=== PATIENT | male | born 1975 | race Caucasian/White ===

== ENCOUNTER 2019-04-17 09:19 | Emergency (ER) | payer SELFPAY ==
[~2019-04-17] VITALS: Ht 170.2 cm; Wt 77.1 kg
[2019-04-17] MEDS ORDERED: SODIUM CHLORIDE 0.9% 500ML 500 ML IV ONE (09:45)
[2019-04-17] MEDS ORDERED: DIPHENHYDRAMINE HCL INJ 50 MG/ML VIAL IV ONE (10:00)
[2019-04-17] MEDS ORDERED: KETOROLAC TROMETHAMINE 30 MG/ML VIAL IV NR (10:00)
[2019-04-17] MEDS ORDERED: METOCLOPRAMIDE HCL 10 MG/2ML VIAL IV ONE (10:00)
[2019-04-17 10:14] LABS: AMPHETAMINES SCREEN,URINE NEGATIVE (NEGATIVE); BENZODIAZEPINES SCREEN,URINE NEGATIVE (NEGATIVE); PHENCYCLIDINE SCREEN,URINE NEGATIVE (NEGATIVE)
[2019-04-17 10:26] VITALS: BP 146/74
== END 2019-04-17 10:46 | disposition home or self-care (01) ==
LOC: ER 09:19
DX: G43.019 Migraine without aura, intractable, without status migrainosus (principal); I10 Essential (primary) hypertension; E78.5 Hyperlipidemia, unspecified; K21.9 Gastro-esophageal reflux disease without esophagitis
CPT/HCPCS: 80307; 99283; J1200; J1885; J2765; J7040

== ENCOUNTER 2019-05-03 15:03 | Emergency (ER) | payer OTHER ==
[~2019-05-03] VITALS: Ht 170.2 cm; Wt 77.1 kg
[2019-05-03 15:44] LABS: BASOPHILS # (AUTO) 0.1 (0.0-0.1); BASOPHILS % 0.6 % (0.0-1.0); EOSINOPHILS # (AUTO) 0.4 (0.0-0.4); EOSINOPHILS % 5.1 % (0.0-6.0); HEMATOCRIT 41.4 % (38.2-49.6); HEMOGLOBIN 14.1 g/dL (14.0-18.0); LYMPHOCYTES # (AUTO) 3.3 (1.0-3.2); LYMPHOCYTES % 41.8 % (18.0-39.1); MEAN CORPUSCULAR HEMOGLOBIN 29.5 pg (28-32); MEAN CORPUSCULAR HGB CONC 34.1 g/dL (31-35); MEAN CORPUSCULAR VOLUME 86.6 fL (81-99); MONOCYTES # (AUTO) 0.6 (0.2-0.8); NEUTROPHILS # (AUTO) 3.6 (2.1-6.9); NEUTROPHILS % 45.1 % (38.7-80.0); PLATELET COUNT 292 x10e3/uL (140-360); RED BLOOD COUNT 4.78 x10e6/uL (4.3-5.7); RED CELL DISTRIBUTION WIDTH 13.2 % (11.7-14.4)
[2019-05-03 15:51] LABS: INR 0.88; PROTHROMBIN TIME 12.4 seconds (11.9-14.5)
[2019-05-03 16:01] LABS: ALANINE AMINOTRANSFERASE 39 IU/L (0-55); ALBUMIN 4.3 g/dL (3.5-5.0); ALBUMIN/GLOBULIN RATIO 1.2 (0.8-2.0); ALKALINE PHOSPHATASE 68 IU/L (40-150); ANION GAP 14.7 mmol/L (8-16); BLOOD UREA NITROGEN 12 mg/dL (7-26); BUN/CREATININE RATIO 12 (6-25); CALCIUM 9.6 mg/dL (8.4-10.2); CARBON DIOXIDE 26 mmol/L (22-29); CHLORIDE 101 mmol/L (98-107); CREATINE KINASE 158 IU/L (30-200); CREATININE, SERUM 1.01 mg/dL (0.72-1.25); EST GLOMERULAR FILTRATION RATE > 60 ML/MIN (60-); GLUCOSE 87 mg/dL (74-118); POTASSIUM 3.7 mmol/L (3.5-5.1); SODIUM 138 mmol/L (136-145)
--- NOTE | 2019-05-03 16:10 | Diagnostic Imaging Report ---
EXAMINATION: CHEST 2 VIEWS INDICATION: Chest pain COMPARISON: None FINDINGS: LINES/TUBES:EKG leads overlie the chest. LUNGS:The lungs are well-inflated. There is perihilar fullness and indistinctness of the pulmonary vasculature. No focal consolidation PLEURA:No pleural effusion or pneumothorax. MEDIASTINUM:The cardiac silhouette is mildly enlarged. BONES/SOFT TISSUES:No acute osseous injury. ABDOMEN:No free air under the diaphragm. IMPRESSION: Mild cardiomegaly and mild interstitial pulmonary edema. Signed by: Itz Sorensen MD on 05/03/2019 4:06 PM
[2019-05-03 16:35] VITALS: BP 148/67
== END 2019-05-03 16:50 | disposition home or self-care (01) ==
LOC: ER 15:03
DX: R10.13 Epigastric pain (principal); I10 Essential (primary) hypertension; E78.5 Hyperlipidemia, unspecified; K21.9 Gastro-esophageal reflux disease without esophagitis
CPT/HCPCS: 36415; 71046; 80053; 82550; 82553; 83880; 84484; 85025; 85610; 85730; 93005; 99284

== ENCOUNTER 2019-05-17 12:02 | Emergency (ER) | payer OTHER ==
[~2019-05-17] VITALS: Ht 170.2 cm; Wt 77.1 kg
--- OUTSIDE RECORDS SUMMARY | 2019-05-17 12:04 | XMS REPORT ---
Author Author [facility] Address Unknown Phone Unavailable Care Team Providers Care Second Shift Supervisor Name Role Phone Vianney LIM Unavailable Unavailable Problems This patient has no known problems. Allergies, Adverse Reactions, Alerts This patient has no known allergies or adverse reactions. Medications This patient has no known medications. Results Test Description Test Time Test Comments Text Results Atomic Results Result Comments CHEST 2 VIEWS 2019-05-03 16:05:00 [place] [id number] Patient Name: PEACE MEDRANO MR #: [id number] : 1975 Age/Sex: 44/M Req #: [id number] Adm Physician: Ordered by: HUMA LIM MD Report #: [id number] Location: ER Room/Bed: Procedure: [id number] DX/CHEST 2 VIEWS Exam Date: 05/03/19 Exam Time: 1545 REPORT STATUS: Signed EXAMINATION: CHEST 2 VIEWS INDICATION: Chest pain COMPARISON: None FINDINGS: LINES/TUBES:EKG leads overlie the chest. LUNGS:The lungs are well-inflated. There is perihilar fullness and indistinctness of the pulmonary vasculature. No focal consolidation PLEURA:No pleural effusion or pneumothorax. MEDIASTINUM:The cardiac silhouette is mildly enlarged. BONES/SOFT TISSUES:No acute osseous injury. ABDOMEN:No free air under the diaphragm. IMPRESSION: Mild cardiomegaly and mild interstitial pulmonary edema. Signed by: Micaela Sorensen MD on 05/03/2019 4:06 PM Dictated By: MICAELA SORENSEN MD [id number] Transcribed By: BALJEET on 05/03/19 1609 COPY TO: HUMA LIM MD
[2019-05-17] MEDS ORDERED: SODIUM CHLORIDE 0.9% 1000ML 1,000 ML IV STA ×2 (12:07)
[2019-05-17] MEDS ORDERED: KETOROLAC TROMETHAMINE 30 MG/ML VIAL IV STA (12:07)
[2019-05-17] MEDS ORDERED: MORPHINE SULFATE INJ 4 MG/ML INJ 1ML IV STA (12:07)
[2019-05-17] MEDS ORDERED: ONDANSETRON HCL INJ 2MG/ML 2ML 2 MG/ML VIAL IV STA (12:07)
[2019-05-17 12:50] LABS: BILIRUBIN,URINE NEGATIVE (NEGATIVE); CLARITY,URINE CLEAR (CLEAR); COLOR,URINE YELLOW (YELLOW); KETONES,URINE NEGATIVE (NEGATIVE); LEUKOCYTE ESTERASE ,URINE NEGATIVE (NEGATIVE); NITRITE,URINE NEGATIVE (NEGATIVE); PROTEIN,URINE DIPSTICK NEGATIVE (NEGATIVE); URINE UROBILINOGEN 0.2 mg/dL (0.2 - 1)
[2019-05-17 12:56] LABS: BACTERIA,URINE FEW /HPF; EPITHELIAL CELLS,URINE FEW /LPF; MUCUS,URINE RARE (RARE); RBC,URINE 0-5 /HPF (0-5); WBC,URINE (MAN) 0-5 /HPF (0-5)
[2019-05-17 13:09] LABS: BASOPHILS % 0.5 % (0.0-1.0); EOSINOPHILS # (AUTO) 0.6 (0.0-0.4); EOSINOPHILS % 7.4 % (0.0-6.0); HEMATOCRIT 42.6 % (38.2-49.6); HEMOGLOBIN 14.6 g/dL (14.0-18.0); LYMPHOCYTES # (AUTO) 2.4 (1.0-3.2); LYMPHOCYTES % 30.8 % (18.0-39.1); MEAN CORPUSCULAR HEMOGLOBIN 29.8 pg (28-32); MEAN CORPUSCULAR HGB CONC 34.3 g/dL (31-35); MEAN CORPUSCULAR VOLUME 86.9 fL (81-99); MONOCYTES # (AUTO) 0.7 (0.2-0.8); MONOCYTES % 8.6 % (4.4-11.3); NEUTROPHILS % 52.3 % (38.7-80.0); PLATELET COUNT 263 x10e3/uL (140-360); RED CELL DISTRIBUTION WIDTH 13.4 % (11.7-14.4)
[2019-05-17 13:19] LABS: ALANINE AMINOTRANSFERASE 59 IU/L (0-55); ALBUMIN 4.1 g/dL (3.5-5.0); ALBUMIN/GLOBULIN RATIO 1.1 (0.8-2.0); ALKALINE PHOSPHATASE 78 IU/L (40-150); ANION GAP 13.9 mmol/L (8-16); BLOOD UREA NITROGEN 13 mg/dL (7-26); BUN/CREATININE RATIO 12 (6-25); CALCIUM 9.4 mg/dL (8.4-10.2); CARBON DIOXIDE 22 mmol/L (22-29); CHLORIDE 104 mmol/L (98-107); CREATININE, SERUM 1.07 mg/dL (0.72-1.25); EST GLOMERULAR FILTRATION RATE > 60 ML/MIN (60-); GLUCOSE 119 mg/dL (74-118); LIPASE 74 U/L (8-78); POTASSIUM 3.9 mmol/L (3.5-5.1); SODIUM 136 mmol/L (136-145)
--- NOTE | 2019-05-17 13:57 | Diagnostic Imaging Report ---
CT of the abdomen and pelvis History: Right flank pain Comparison: None available. Technique: Multidetector CT scanning of the abdomen and pelvis was performed from the level of the lung bases to the inferior pubic ramus, without contrast. DOSE REDUCTION: The examination was performed according to departmental dose-optimization program which includes automated exposure control, adjustment of the mA and/or kV according to patient size and/or use of iterative reconstruction technique. Discussion: The lung bases are clear. Lack of IV contrast limits evaluation of solid and hollow visceral organs. No focal hepatic lesions are identified. The gallbladder is present nondistended. No radiopaque gallstones are identified. There is no intrahepatic or extrahepatic ductal dilatation. The spleen is within normal limits. The bilateral adrenal glands are unremarkable. The pancreas is homogeneous in attenuation. There is no pancreatic ductal dilatation. No peripancreatic inflammatory stranding is present. The kidneys are normal in size. No kidney stones are identified bilaterally. There is no hydroureteronephrosis bilaterally. The stomach, small, and large bowel are nondistended. There is no evidence of obstruction. No bowel wall thickening is appreciated. The appendix is normal in caliber. There is no free intraperitoneal air or ascites. The abdominal aorta is of normal course and caliber. The urinary bladder is within normal limits. No acute osseous abnormalities. IMPRESSION: No CT evidence of acute abdominal or pelvic pathology. Specifically, there is no evidence of nephroureterolithiasis. Signed by: Temo Chapin MD on 05/17/2019 1:54 PM
== END 2019-05-17 14:09 | disposition home or self-care (01) ==
LOC: ER 12:02
DX: M54.5 Low back pain (principal); R10.32 Left lower quadrant pain; R11.0 Nausea; I10 Essential (primary) hypertension
CPT/HCPCS: 36415; 74176; 80053; 81001; 83690; 85025; 87086; 99284; J1885; J2270; J2405; J7030

== ENCOUNTER 2020-01-18 20:36 | Inpatient (IN) | payer OTHER, SELFPAY ==
[~2020-01-18] VITALS: Ht 170.2 cm; Wt 75.3 kg
[2020-01-18] MEDS: SODIUM CHLORIDE 0.9% 1000ML 1,000 ML IV SCH (02:05)
--- NOTE | 2020-01-18 20:58 | Emergency Department Note ---
History of Present Illnes History of Present Illness Chief Complaint: Chest Pain History of Present Illness This is a 44 year old male left sided chest wall pain radiates to the back. Pain with inspiration. Recent COVID-19 infection last month but has since resolved with two neg COVID-19 tests per patient Arrival Mode: Car Onset (how long ago): day(s) (4) Radiation: Reports back Severity: moderate Onset quality: gradual Duration (how long): day(s) (3) Timing of current episode: constant Progression: worsening Chronicity: new Context: Denies recent illness, Denies recent surgery, Denies recent immobilization, Denies recent travel, Denies trauma/injury, Denies new medications, Denies hx of DVT/PE, Denies non-compliance w/ medications, Denies other Relieving factors: rest Exacerbating factors: other (breathing) Associated symptoms: Reports chest pain, Reports shortness of breath Treatments prior to arrival: none Previous service: other (recent PCP ) Past Medical/Family History Physician Review I have reviewed the patient's past medical and family history. Any updates have been documented here. Past Medical History Recent Fever: No Clinical Suspicion of Infectio: No New/Unexplained Change in Ment: No Past Medical History: Hypertension, Hyperlipedemia Other Medical History: GERD CERVICAL DISK INJURY Other Surgery: TESTICULAR SX Social History Smoking Cessation: Never Smoker Alcohol Use: Occasional Any Illegal Drug Use: No Other Last Tetanus: UTD Review of Systems Review of Systems Constitutional: Denies fever, Denies malaise, Denies weakness EENTM: Reports no symptoms Cardiovascular: Reports chest pain Respiratory: Reports pain on inspiration Gastrointestinal: Reports no symptoms Genitourinary: Reports no symptoms Musculoskeletal: Reports no symptoms Integumentary: Reports no symptoms Neurological: Reports no symptoms Psychological: Reports no symptoms Endocrine: Reports no symptoms Hematological/Lymphatic: Reports no symptoms Physical Exam Related Data Allergies: Coded Allergies: No Known Allergies (Unverified , 05/03/19) Vital signs reviewed: Yes Physical Exam CONSTITUTIONAL Constitutional: Present well-developed, Present well-nourished HENT HENT: Present normocephalic, Present atraumatic, Present oropharynx clear/moist, Present nose normal HENT L/R: Present left ext ear normal, Present right ext ear normal EYES Eyes: Reports PERRL, Reports conjunctivae normal NECK Neck: Present ROM normal PULMONARY Pulmonary: Present effort normal, Present breath sounds normal CARDIOVASCULAR Cardiovascular: Present regular rhythm, Present heart sounds normal, Present capillary refill normal, Present normal rate GASTROINTESTINAL Abdominal: Present soft, Present nontender, Present bowel sounds normal GENITOURINARY Genitourinary: Present exam deferred SKIN Skin: Present warm, Present dry MUSCULOSKELETAL Musculoskeletal: Present ROM normal NEUROLOGICAL Neurological: Present alert, Present oriented x 3, Present no gross motor or sensory deficits PSYCHOLOGICAL Psychological: Present mood/affect normal, Present judgement normal Results Laboratory Lab results reviewed: Yes Laboratory comments Laboratory Tests Test 01/18/20 23:00 01/18/20 21:00 Lactic Acid Level 0.9 mmol/L (0.5-2.0) White Blood Count 20.43 x10e3/uL (4.8-10.8) Red Blood Count 4.39 x10e6/uL (4.3-5.7) Hemoglobin 12.7 g/dL (14.0-18.0) Hematocrit 37.4 % (38.2-49.6) Mean Corpuscular Volume 85.2 fL (81-99) Mean Corpuscular Hemoglobin 28.9 pg (28-32) Mean Corpuscular Hemoglobin Concent 34.0 g/dL (31-35) Red Cell Distribution Width 15.2 % (11.7-14.4) Platelet Count 417 x10e3/uL (140-360) Neutrophils (%) (Auto) 81.6 % (38.7-80.0) Lymphocytes (%) (Auto) 8.7 % (18.0-39.1) Monocytes (%) (Auto) 8.0 % (4.4-11.3) Eosinophils (%) (Auto) 0.6 % (0.0-6.0) Basophils (%) (Auto) 0.3 % (0.0-1.0) Neutrophils # (Auto) 16.7 (2.1-6.9) Lymphocytes # (Auto) 1.8 (1.0-3.2) Monocytes # (Auto) 1.6 (0.2-0.8) Eosinophils # (Auto) 0.1 (0.0-0.4) Basophils # (Auto) 0.1 (0.0-0.1) Absolute Immature Granulocyte (auto 0.17 x10e3/uL (0-0.1) Sodium Level 135 mmol/L (136-145) Potassium Level 3.7 mmol/L (3.5-5.1) Chloride Level 96 mmol/L (98-107) Carbon Dioxide Level 25 mmol/L (22-29) Anion Gap 17.7 mmol/L (8-16) Blood Urea Nitrogen 16 mg/dL (7-26) Creatinine 1.38 mg/dL (0.72-1.25) Estimat Glomerular Filtration Rate 56 ML/MIN (60-) BUN/Creatinine Ratio 12 (6-25) Glucose Level 138 mg/dL (74-118) Calcium Level 9.2 mg/dL (8.4-10.2) Total Bilirubin 2.8 mg/dL (0.2-1.2) Aspartate Amino Transf (AST/SGOT) 307 IU/L (5-34) Alanine Aminotransferase (ALT/SGPT) 442 IU/L (0-55) Alkaline Phosphatase 273 IU/L (40-150) Creatine Kinase 53 IU/L (30-200) Creatine Kinase MB 0.20 ng/mL (0-5.0) Troponin I < 0.001 ng/mL (0-0.300) B-Type Natriuretic Peptide < 10.0 pg/mL (0-100) Total Protein 7.8 g/dL (6.5-8.1) Albumin 2.7 g/dL (3.5-5.0) Globulin 5.1 g/dL (2.3-3.5) Albumin/Globulin Ratio 0.5 (0.8-2.0) Lipase 69 U/L (8-78) Imaging Imaging results reviewed: Yes Impressions [place] [id number] Patient Name: PEACE MEDRANO MR #: [id number] : 1975 Age/Sex: 44/M Req #: [id number] Adm Physician: Ordered by: STEPHANIE WILKES DO Report #: [id number] Location: ER Room/Bed: Procedure: [id number] CT/CTA CHEST Exam Date: 01/18/20 Exam Time: 2229 REPORT STATUS: Signed EXAM: CTA of the Thoracic Aorta WITH Contrast. CTA of the abdominopelvic aorta INDICATION: Left chest pain ^PE PROTOCOL ^[id number] ^2229 ^Y COMPARISON: None. TECHNIQUE: Multi-detector CT technology was employed. CTA of the chest, abdomen, and pelvis was performed after the administration of IV contrast. For optimization of anatomic evaluation, multiplanar reconstruction, maximum intensity projections, and advanced 3-D off-line postprocessing were performed on a dedicated stand-alone workstation under the direct supervision of the interpreting physician. IV CONTRAST: 100 mL of Isovue 370 ORAL CONTRAST: None COMPLICATIONS: None RADIATION DOSE: Total DLP: 1149.35 mGy-cm Estimated effective dose: (DLP x 0.015 x size factor) mSv CTDIvol has been reviewed. It is below the limits set by the Radiation Protocol Committee (RPC). For optimization of anatomic evaluation, multiplanar reconstruction, maximum intensity projections, and advanced 3-D off-line postprocessing were performed on a dedicated stand-alone workstation under the direct supervision of the interpreting physician. FINDINGS: CHEST: There is an acute fracture through the anterior first rib. There there is a subadjacent 3.7 x 2.8 x 1.9 cm heterogenous collection with internal foci of gas. There appears to be compressed lung on the outer aspect of the lesion. The left internal mammary artery courses along the medial aspect of the collection. The collection abuts the anterior mediastinum. There are reactive inflammatory changes in the anterior mediastinum. There is loculated simple appearing fluid in the left major fissure and at the left base without pleural thickening or enhancement. There is consolidation in the left lower lobe with air bronchograms. There is scattered atelectasis in the right lung. The heart is not enlarged. The thoracic aorta is normal caliber. No evidence of intramural hematoma or dissection. No filling defects within the pulmonary arteries. LIMITED ABDOMEN: HEPATOBILIARY: No focal hepatic lesions. No biliary ductal dilation. GALLBLADDER: No radio-opaque stones or sludge. No wall thickening. SPLEEN: No splenomegaly. PANCREAS: No focal masses or ductal dilatation. ADRENALS: No adrenal nodules KIDNEYS/URETERS: Kidneys enhance symmetrically. No hydronephrosis. No cystic or solid mass lesions. No stones. GI TRACT: No abnormal distention, wall thickening, or evidence of bowel obstruction. Appendix is normal. PELVIC ORGANS/BLADDER: Unremarkable. LYMPH NODES: No lymphadenopathy. VESSELS: The abdominal aorta is normal caliber. PERITONEUM / RETROPERITONEUM: No free air or fluid. BONES: Unremarkable. SOFT TISSUES: Unremarkable. IMPRESSION: 1. 3.7 cm collection with internal foci of gas in the upper left hemithorax abutting a nondisplaced first rib fracture. The collection is favored to lay within the pleural space and representing a loculated empyema. Pulmonary abscess is considered less likely, but possible. The left internal mammary artery courses along the medial aspect of the lesion. Consider interventional radiology consultation. Follow-up CT with contrast in 6 weeks is recommended to exclude an underlying mass lesion. 2. Findings concerning for left lower lobe pneumonia, but atelectasis is also considered. Small simple appearing dependent left pleural effusion with fluid tracking in the left major fissure 3. Normal aorta. There is no acute aortic pathology. 4. No acute abdominopelvic process. 5. No filling defects within the pulmonary arteries. Critical results were discussed with Dr. Wilkes on 01/18/2020 and 11:15 PM Signed by: Halle Noble MD on 01/18/2020 11:27 PM Dictated By: HALLE NOBLE MD Transcribed By: BALJEET on 01/18/20 [id number] COPY TO: STEPHANIE WILKES DO~ Procedures 12 Lead ECG Interpretation ECG Interpretation : ECG: ECG 1 [employer]: Interpreted by ED physician Date: Jan 18, 2020 Time: 21:02 Prior ECG tracings: reviewed Rhythm: sinus rhythm Rate: normal BPM: 84 QRS axis: normal ST segments normal: Yes T waves normal: Yes Clinical Impression: normal ECG Assessment & Plan Medical Decision Making MDM 44 yom presents with chest pain. CMP, CBC, EKG, CT chest aand cardiac enzymes ordered for consideration of ACS, PE, costocondritis, Chest wall pain, and pneumothorax considered. labs, imaging and EKG reviewed . Assessment & Plan Final Impression: (1) Empyema lung (2) Rib fracture (3) Transaminitis Depart Disposition: ADMITTED Home Meds No Active Prescriptions or Reported Meds STEPHANIE WILKES DO Jan 18, 2020 20:58
[2020-01-18] MEDS ORDERED: KETOROLAC TROMETHAMINE 30 MG/ML VIAL IV NR (21:00)
[2020-01-18] MEDS ORDERED: ONDANSETRON HCL INJ 2MG/ML 2ML 2 MG/ML VIAL IV NR (21:00)
[2020-01-18 21:12] LABS: BASOPHILS # (AUTO) 0.1 (0.0-0.1); BASOPHILS % 0.3 % (0.0-1.0); EOSINOPHILS # (AUTO) 0.1 (0.0-0.4); EOSINOPHILS % 0.6 % (0.0-6.0); HEMATOCRIT 37.4 % (38.2-49.6); HEMOGLOBIN 12.7 g/dL (14.0-18.0); LYMPHOCYTES # (AUTO) 1.8 (1.0-3.2); LYMPHOCYTES % 8.7 % (18.0-39.1); MEAN CORPUSCULAR HEMOGLOBIN 28.9 pg (28-32); MEAN CORPUSCULAR VOLUME 85.2 fL (81-99); MONOCYTES # (AUTO) 1.6 (0.2-0.8); NEUTROPHILS # (AUTO) 16.7 (2.1-6.9); NEUTROPHILS % 81.6 % (38.7-80.0); PLATELET COUNT 417 x10e3/uL (140-360); RED BLOOD COUNT 4.39 x10e6/uL (4.3-5.7); RED CELL DISTRIBUTION WIDTH 15.2 % (11.7-14.4)
[2020-01-18] MEDS ORDERED: MORPHINE SULFATE INJ 4 MG/ML INJ 1ML IV NR (21:15)
[2020-01-18 21:31] LABS: ALANINE AMINOTRANSFERASE 442 IU/L (0-55); ALBUMIN 2.7 g/dL (3.5-5.0); ALBUMIN/GLOBULIN RATIO 0.5 (0.8-2.0); ALKALINE PHOSPHATASE 273 IU/L (40-150); ANION GAP 17.7 mmol/L (8-16); BLOOD UREA NITROGEN 16 mg/dL (7-26); BUN/CREATININE RATIO 12 (6-25); CALCIUM 9.2 mg/dL (8.4-10.2); CARBON DIOXIDE 25 mmol/L (22-29); CHLORIDE 96 mmol/L (98-107); CREATINE KINASE 53 IU/L (30-200); CREATININE, SERUM 1.38 mg/dL (0.72-1.25); EST GLOMERULAR FILTRATION RATE 56 ML/MIN (60-); GLUCOSE 138 mg/dL (74-118); POTASSIUM 3.7 mmol/L (3.5-5.1); SODIUM 135 mmol/L (136-145)
[2020-01-18] MEDS ORDERED: SODIUM CHLORIDE 0.9% 1000ML 1,000 ML IV STA (21:53)
--- OUTSIDE RECORDS SUMMARY | 2020-01-18 22:02 | XMS REPORT | Continuity of Care Document ---
Author Author [facility] Organization [facility] Address [address] [place] [address] Phone Unavailable Care Team Providers [employer] Counselor Name Role Phone JANNIE VERGARA DO PCP BUSTER LOPEZ Attphys Unavailable Vianney LIM Attphyaysha Unavailable Payers Payer Name Policy Type Policy Number Effective Date Expiration Date Aysha Zepeda [id number] [facility] Problems Condition Name Condition Details Condition Category Status Onset Date Resolution Date Last Treatment Date Treating Clinician Comments Source Bronchitis Bronchitis Problem Active C [facility] Allergies, Adverse Reactions, Alerts This patient has no known allergies or adverse reactions. Medications This patient has no known medications. Procedures Procedure Date / Time Performed Performing Clinician Sour e CT of abdomen and pelvis without contrast 2019-05-17 00:00:00 BUSTER PACHECO [facility] X-ray of chest, two views 2019-05-03 00:00:00 HUMA LIM [facility] EMERGENCY DEPT VISIT 2019-05-03 00:00:00 [facility] Encounters Start Date/Time End Date/Time Encounter Type Admission Type Attendi [facility] Care Department Encounter ID Source 2019-11-30 21:30:00 2019-11-30 21:30:00 Emergency E [id number] 2019-05-17 12:02:00 2019-05-17 14:09:00 Departed Emergency Room [address] [facility] [id number] [facility] 2019-05-03 15:03:00 2019-05-03 16:50:00 Departed Emergency Room [address] [facility] [id number] [facility] 2019-04-17 09:19:00 2019-04-17 10:46:[address] [facility] [id number] [facility] Results Test Description Test Time Test Comments Results Result Comments Source CT ABDOMEN/PELVIS WO 2019-05-17 13:50:00 [facility] [address] [address] Patient Name: TEMO MEDRANO MR #: [id number] : 1975 Age/Sex: 44/M Req #: [id number] Adm Physician: Ordered by: BUSTER LOPEZ MD, MD Report #: [id number] Location: ER Room/Bed: Procedure: [id number] CT/CT ABDOMEN/PELVIS WO Exam Date: 05/17/19 Exam Time: 1330 REPORT STATUS: Signed CT of the abdomen and pelvis Histo ry: Right flank pain Comparison: None available. Technique: Multidetector CT scanning of the abdomen and pelvis was performed from the level of the lung bases to the inferior pubic ramus, without contrast. DOSE REDUCTION: The examination was performed according to departmental dose-optimization program which includes automated exposure control, adjustment of the mA and/or kV according to patient size and/or use of iterative reconstruction technique. Discussion: The lung bases are clear. Lack of IV contrast limits evaluation of solid and hollow visceral organs. No focal hepatic lesions are identified. The gallbladder is present nondistended. No radiopaque gallstones are identified. There is no intrahepatic or extrahepatic ductal dilatation. The spleen is within normal limits. The bilateral adrenal glands are unremarkable. The pancreas is homogeneous in attenuation. There is no pancreatic ductal dilatation. No peripancreatic inflammatory stranding is present. The kidneys are normal in size. No kidney stones are identified bilaterally. There is no hydroureteronephrosis bilaterally. The stomach, small, and large bowel are nondistended. There is no evidence of obstruction. No bowel wall thickening is appreciated. The appendix is normal in caliber. There is no free intraperitoneal air or ascites. The abdominal aorta is of normal course and caliber. The urinary bladder is within normal limits. No acute osseous abnormalities. IMPRESSION: No CT evidence of acute abdominal or pelvic pathology. Specifically, there is no evidence of nephroureterolithiasis. Signed by: Temo Winter MD on 05/17/2019 1:54 PM Dictated By: TEMO WINTER MD 1354 Transcribed By: BALJEET on 05/17/19 1354 COPY TO: BUSTER LOPEZ Sodium Level 2019-05-17 13:20:00 Test Item Sodium Level (test code = 2951-2) 136 136-145 [facility] Kfefh3027-46-87 13:20:00* Test Item Value Reference Range Interpretation Comments Potassium Level (test code = 2823-3) 3.9 3.5-5.1 [facility]Chloride Lwquj1811-50-08 13:20:00* Test Item Value Reference Range Interpretation Comments Chloride Level (test code = 2075-0) 104 98-107 [facility]Carbon Dioxide Urzfy8374-12-70 13:20:00* Test Item Value Reference Range Interpretation Comments Carbon Dioxide Level (test code = 2028-9) 22 22-29 [facility]Anion Spg2946-63-24 13:20:00* Test Item Value Reference Range Interpretation Comments Anion Gap (test code = 68032-3) 13.9 8-16 [facility]Blood Urea Yinijmpg9708-18-15 13:20:00* Test Item Value Reference Range Interpretation Comments Blood Urea Nitrogen (test code = 3094-0) 13 7-26 [facility]Creatinine2019-12-02 13:20:00* Test Item Value Reference Range Interpretation Comments Creatinine (test code = 2160-0) 1.07 0.72-1.25 [facility]BUN/Creatinine Rqbhc9891-72-67 13:20:00* Test Item Value Reference Range Interpretation Comments BUN/Creatinine Ratio (test code = 3097-3) 12 6-25 [facility] HospitalEstimat Glomerular Filtration Rate 2019-05-17 13:20:00* Test Item Value Reference Range Interpretation Comments Estimat Glomerular Filtration Rate (test code = 978286618) > 60 >60 Ranges were taken from the National Kidney Disease Education Program and the [facility] Kidney Foundation literature.Reference ranges:60 or greater: Spyofa24-54 ( for 3 consecutive months): Chronic kidney disease 15 or less: Kidney failure[facility] HospitalGlucose Qffwq8121-43-89 13:20:00* Test Item Value Reference Range Interpretation Comments Glucose Level (test code = IIV3451) 119 74-118 H [facility] HospitalCalcium Viylm0279-93-34 13:20:00* Test Item Value Reference Range Interpretation Comments Calcium Level (test code = 58797-7) 9.4 8.4-10.2 [facility] HospitalTotal Afsznbvtz9911-65-51 13:20:00* Test Item Value Reference Range Interpretation Comments Total Bilirubin (test code = 1975-2) 0.3 0.2-1.2 [facility] HospitalAspartate Amino Transf (AST/SGOT) 2019-05-17 13:20:00* Test Item Value Reference Range Interpretation Comments Aspartate Amino Transf (AST/SGOT) (test code = Aspartate Amino Transf (AST/SGOT)) 34 5-34 [facility] HospitalAlanine Aminotransferase (ALT/SGPT) 2019-05-17 13:20:00* Test Item Value Reference Range Interpretation Comments Alanine Aminotransferase (ALT/SGPT) (test code = 1742-6) 59 0-55 H [facility] HospitalTotal Plqyavg2356-76-33 13:20:00* Test Item Value Reference Range Interpretation Comments Total Protein (test code = 2885-2) 7.7 6.5-8.1 [facility] HospitalAlbumin2019-12-02 13:20:00* Test Item Value Reference Range Interpretation Comments Albumin (test code = 1751-7) 4.1 3.5-5.0 [facility] HospitalGlobulin2019-12-02 13:20:00* Test Item Value Reference Range Interpretation Comments Globulin (test code = 27702-7) 3.6 2.3-3.5 H [facility] HospitalAlbumin/Globulin Wuvqc0901-64-39 13:20:00 * Test Item Value Reference Range Interpretation Comments Albumin/Globulin Ratio (test code = 1759-0) 1.1 0.8-2.0 [facility] HospitalAlkaline Dwsmitjpyac1262-73-76 13:20:00* Test Item Value Reference Range Interpretation Comments Alkaline Phosphatase (test code = 6768-6) 78 40-150 [facility] HospitalLipase2019-12-02 13:20:00* Test Item Value Reference Range Interpretation Comments Lipase (test code = 3040-3) 74 8-78 [facility] HospitalWhite Blood Jspsd2653-72-91 13:10:00* Test Item Value Reference Range Interpretation Comments White Blood Count (test code = 6690-2) 7.67 4.8-10.8 [facility]Red Blood Wmimc7050-15-87 13:10:00* Test Item Value Reference Range Interpretation Comments Red Blood Count (test code = 789-8) 4.90 4.3-5.7 [facility] HospitalHemoglobin2019-12-02 13:10:00* Test Item Value Reference Range Interpretation Comments Hemoglobin (test code = 02074-3) 14.6 14.0-18.0 [facility] HospitalHematocrit2019-12-02 13:10:00* Test Item Value Reference Range Interpretation Comments Hematocrit (test code = 4544-3) 42.6 38.2-49.6 [facility] HospitalMean Corpuscular Klwnja6811-58-29 13:10:00* Test Item Value Reference Range Interpretation Comments Mean Corpuscular Volume (test code = 787-2) 86.9 81-99 [facility] HospitalMean Corpuscular Uivpmpbmbf1671-75-04 13:10:00* Test Item Value Reference Range Interpretation Comments Mean Corpuscular Hemoglobin (test code = 785-6) 29.8 28-32 [facility] HospitalMean Corpuscular Hemoglobin Concent 2019-05-17 13:10:00* Test Item Value Reference Range Interpretation Comments Mean Corpuscular Hemoglobin Concent (test code = 786-4) 34.3 31-35 [facility] HospitalRed Cell Distribution Bgbkl3187-14-29 13:10:00* Test Item Value Reference Range Interpretation Comments Red Cell Distribution Width (test code = 77559-7) 13.4 11.7 -14.4 [facility] HospitalPlatelet Rrgcf8173-34-46 13:10:00* Test Item Value Reference Range Interpretation Comments Platelet Count (test code = 777-3) 263 140-360 [facility] HospitalNeutrophils (%) (Auto)2019-05-17 13:10:00 * Test Item Value Reference Range Interpretation Comments Neutrophils (%) (Auto) (test code = 10067-5) 52.3 38.7-80.0 [facility] HospitalLymphocytes (%) (Auto)2019-05-17 13:10:00 * Test Item Value Reference Range Interpretation Comments Lymphocytes (%) (Auto) (test code = 736-9) 30.8 18.0-39.1 [facility] HospitalMonocytes (%) (Auto)2019-05-17 13:10:00* Test Item Value Reference Range Interpretation Comments Monocytes (%) (Auto) (test code = 5905-5) 8.6 4.4-11.3 [facility] HospitalEosinophils (%) (Auto)2019-05-17 13:10:00 * Test Item Value Reference Range Interpretation Comments Eosinophils (%) (Auto) (test code = 713-8) 7.4 0.0-6.0 H [facility] HospitalBasophils (%) (Auto)2019-05-17 13:10:00* Test Item Value Reference Range Interpretation Comments Basophils (%) (Auto) (test code = 706-2) 0.5 0.0-1.0 [facility] HospitalIM GRANULOCYTES %2019-05-17 13:10:00* Test Item Value Reference Range Interpretation Comments IM GRANULOCYTES % (test code = IM GRANULOCYTES %) 0.4 0.0- 1.0 [facility] HospitalNeutrophils # (Auto)2019-05-17 13:10:00* Test Item Value Reference Range Interpretation Comments Neutrophils # (Auto) (test code = 751-8) 4.0 2.1-6.9 [facility] HospitalLymphocytes # (Auto)2019-05-17 13:10:00* Test Item Value Reference Range Interpretation Comments Lymphocytes # (Auto) (test code = 70641-5) 2.4 1.0-3.2 [facility] HospitalMonocytes # (Auto)2019-05-17 13:10:00* Test Item Value Reference Range Interpretation Comments Monocytes # (Auto) (test code = 742-7) 0.7 0.2-0.8 [facility]Eosinophils # (Auto)2019-05-17 13:10:00* Test Item Value Reference Range Interpretation Comments Eosinophils # (Auto) (test code = 711-2) 0.6 0.0-0.4 H [facility] HospitalBasophils # (Auto)2019-05-17 13:10:00* Test Item Value Reference Range Interpretation Comments Basophils # (Auto) (test code = 704-7) 0.0 0.0-0.1 [facility] HospitalAbsolute Immature Granulocyte (auto 2019-05-17 13:10:00* Test Item Value Reference Range Interpretation Comments Absolute Immature Granulocyte (auto (jeronimo t code = Absolute Immature Granulocyte (auto) 0.03 0-0.1 [facility] HospitalUrine VPQ5215-95-76 12:57:00* Test Item Value Reference Range Interpretation Comments Urine WBC (test code = 5821-4) 0-5 0-5 [facility] HospitalUrine NXJ2047-38-22 12:57:00* Test Item Value Reference Range Interpretation Comments Urine RBC (test code = 38122-8) 0-5 0-5 [facility] HospitalUrine Eudrjbyu1447-23-59 12:57:00* Test Item Value Reference Range Interpretation Comments Urine Bacteria (test code = 78393-3) FEW NONE [facility] HospitalUrine Epithelial Fzqjm8567-79-60 12:57:00 * Test Item Value Reference Range Interpretation Comments Urine Epithelial Cells (test code = 90770-5) FEW NONE [facility] HospitalUrine Aqtkh2365-64-55 12:57:00* Test Item Value Reference Range Interpretation Comments Urine Mucus (test code = 8247-9) RARE RARE [facility] HospitalUrine Rvddb4634-90-84 12:51:00* Test Item Value Reference Range Interpretation Comments Urine Color (test code = 5778-6) YELLOW YELLOW [facility] HospitalUrine Tdjoylk5419-86-14 12:51:00* Test Item Value Reference Range Interpretation Comments Urine Clarity (test code = 93016-8) CLEAR CLEAR [facility] HospitalUrine Specific Vsayyfm1538-11-39 12:51:00 * Test Item Value Reference Range Interpretation Comments Urine Specific [place] (test code = 5811-5) 1.015 1.010-1.02 5 [facility] HospitalUrine bD8673-14-22 12:51:00* Test Item Value Reference Range Interpretation Comments Urine pH (test code = 92546-3) 7 5-7 [facility] Leukocyte Rcwzbktq3293-87-47 12:51:00* Test Item Value Reference Range Interpretation Comments Urine Leukocyte Esterase (test code = 29002-0) NEGATIVE NEGATIV E [facility] HospitalUrine Xumwaea7729-77-81 12:51:00* Test Item Value Reference Range Interpretation Comments Urine Nitrite (test code = 22985-1) NEGATIVE NEGATIVE [facility] HospitalUrine Mbqxmli9351-16-70 12:51:00* Test Item Value Reference Range Interpretation Comments Urine Protein (test code = 32566-1) NEGATIVE NEGATIVE [facility] HospitalUrine Glucose (UA)2019-05-17 12:51:00* Test Item Value Reference Range Interpretation Comments Urine Glucose (UA) (test code = 50403-9) NEGATIVE NEGATIVE [facility] HospitalUrine Xxjudaz0452-97-97 12:51:00* Test Item Value Reference Range Interpretation Comments Urine Ketones (test code = 58316-0) NEGATIVE NEGATIVE [facility] HospitalU[facility] Poghxgkgibeb3818-52-28 12:51:00* Test Item Value Reference Range Interpretation Comments Urine Urobilinogen (test code = 50538-5) 0.2 0.2-1 [facility] HospitalU[facility] Dtigewirm2941-96-45 12:51:00* Test Item Value Reference Range Interpretation Comments Urine Bilirubin (test code = 1977-8) NEGATIVE NEGATIVE [facility] Scxqj2500-59-58 12:51:00* Test Item Value Reference Range Interpretation Comments Urine Blood (test code = 30498-5) NEGATIVE NEGATIVE [facility] HospitalB-Type Natriuretic Bffqaxt3143-12-48 16:10:00* Test Item Value Reference Range Interpretation Comments B-Type Natriuretic Peptide (test code = 30450-1) < 10.0 0-100 [facility] HospitalB-Type Natriuretic Yvkpcno5351-15-34 16:10:00* Test Item Value Reference Range Interpretation Comments B-Type Natriuretic Peptide (test code = 75502-9) < 10.0 0-100 [facility] HospitalCreatine Kinase SY1944-84-21 16:08:00* Test Item Value Reference Range Interpretation Comments Creatine Kinase MB (test code = 88286-4) 0.70 0-5.0 [facility] HospitalTroponin I0423-91-81 16:08:00* Test Item Value Reference Range Interpretation Comments Troponin I (test code = CAP1936) < 0.001 0-0.300 [facility] HospitalCreatine Kinase FF3139-31-43 16:08:00* Test Item Value Reference Range Interpretation Comments Creatine Kinase MB (test code = 67213-2) 0.70 0-5.0 [facility] HospitalTroponin L1964-35-68 16:08:00* Test Item Value Reference Range Interpretation Comments Troponin I (test code = JOX1980) < 0.001 0-0.[address] [facility]CHEST 2 XGQID7918-47-93 16:05:[address] [address] Patient Name: TEMO MEDRANO MR #: [id number] : 1975 Age/Sex: 44/M Req #: [id number] Adm Physician: Ordered by: HUMA LIM MD Report #: [id number] Location: ER Room/Bed: Procedure: [id number] DX/CHEST 2 VIEWS Exam Date: 05/03/19 Exam Time: 1545 REPORT STATUS: Signed EXAMINATION: CHEST 2 VIEWS INDICATION: Chest pain COMPARISON: N one FINDINGS: LINES/TUBES:EKG leads overlie the chest. LUNGS :The lungs are well-inflated. There is perihilar fullness and indistinctness o f the pulmonary vasculature. No focal consolidation PLEURA:No pleural effu loyd or pneumothorax. MEDIASTINUM:The cardiac silhouette is mildly enlarged . BONES/SOFT TISSUES:No acute osseous injury. ABDOMEN:No free air unde r the diaphragm. IMPRESSION: Mild cardiomegaly and mild interstitial pulmonary edema. Signed by: Micaela Zaragoza MD on 05/03/2019 4:06 PM Dic tated By: MICAELA ZARAGOZA MD 160 6 Transcribed By: BALJEET on 05/03/19 1606 COPY TO: HUMA LIM Sodium Yexri7683-04-24 16:03:00* Test Item Value Reference Range Interpretation Comments Sodium Level (test code = 2951-2) 138 136-145 [facility]Pot[facility] Kjvif3238-57-82 16:03:00* Test Item Value Reference Range Interpretation Comments Potassium Level (test code = 2823-3) 3.7 3.5-5.1 [facility] HospitalChloride Yhleo0320-97-06 16:03:00* Test Item Value Reference Range Interpretation Comments Chloride Level (test code = 2075-0) 101 98-107 [facility] HospitalCarbon Dioxide Tryzh1278-25-39 16:03:00* Test Item Value Reference Range Interpretation Comments Carbon Dioxide Level (test code = 2028-9) 26 22-29 [facility] HospitalAnion Qqn1679-29-06 16:03:00* Test Item Value Reference Range Interpretation Comments Anion Gap (test code = 74980-1) 14.7 8-16 [facility] HospitalBlood Urea Ovfjvadi2473-14-56 16:03:00* Test Item Value Reference Range Interpretation Comments Blood Urea Nitrogen (test code = 3094-0) 12 7-26 [facility] HospitalCreatinine2019-11-18 16:03:00* Test Item Value Reference Range Interpretation Comments Creatinine (test code = 2160-0) 1.01 0.72-1.25 [facility] HospitalBUN/Creatinine Tjmam9513-22-14 16:03:00* Test Item Value Reference Range Interpretation Comments BUN/Creatinine Ratio (test code = 3097-3) 12 6- [facility] HospitalEstimat Glomerular Filtration Rate 2019-05-03 16:03:00* Test Item Value Reference Range Interpretation Comments Estimat Glomerular Filtration Rate (test code = 876689308) > 60 >60 Ranges were taken from the National Kidney Disease Education Program and the [facility] literature.Reference ranges:60 or greater: Hcyzet08-21 ( for 3 consecutive months): Chronic kidney disease 15 or less: Kidney failureHemphill County HospitalGlucose Scqik7104-08-03 16:03:00* Test Item Value Reference Range Interpretation Comments Glucose Level (test code = SPB6049) 87 74-118 [facility] HospitalCalcium Pzdeo1763-33-72 16:03:00* Test Item Value Reference Range Interpretation Comments Calcium Level (test code = 55185-8) 9.6 8.4-10.2 [facility] HospitalTotal Pkuqcfpin4769-18-92 16:03:00* Test Item Value Reference Range Interpretation Comments Total Bilirubin (test code = 1975-2) 0.5 0.2-1.2 [facility] HospitalAspartate Amino Transf (AST/SGOT) 2019-05-03 16:03:00* Test Item Value Reference Range Interpretation Comments Aspartate Amino Transf (AST/SGOT) (test code = Aspartate Amino Transf (AST/SGOT)) 31 5-34 [facility] HospitalAlanine Aminotransferase (ALT/SGPT) 2019-05-03 16:03:00* Test Item Value Reference Range Interpretation Comments Alanine Aminotransferase (ALT/SGPT) (test code = 1742-6) 39 0-55 [facility] HospitalTotal Gmbqkux7451-84-88 16:03:00* Test Item Value Reference Range Interpretation Comments Total Protein (test code = 2885-2) 7.8 6.5-8.1 [facility] HospitalAlbumin2019-11-18 16:03:00* Test Item Value Reference Range Interpretation Comments Albumin (test code = 1751-7) 4.3 3.5-5.0 [facility] HospitalGlobulin2019-11-18 16:03:00* Test Item Value Reference Range Interpretation Comments Globulin (test code = 09547-8) 3.5 2.3-3.5 [facility] HospitalAlbumin/Globulin Glwlz4033-94-72 16:03:00 * Test Item Value Reference Range Interpretation Comments Albumin/Globulin Ratio (test code = 1759-0) 1.2 0.8-2.0 [facility] HospitalAlkaline Suyywchbkun0561-15-14 16:03:00* Test Item Value Reference Range Interpretation Comments Alkaline Phosphatase (test code = 6768-6) 68 40-150 [facility] HospitalCreatine Wtlnwb2649-75-68 16:03:00* Test Item Value Reference Range Interpretation Comments Creatine Kinase (test code = 2157-6) 158 30-200 [facility] HospitalCreatine Dpjicq6656-41-96 16:03:00* Test Item Value Reference Range Interpretation Comments Creatine Kinase (test code = 2157-6) 158 30-200 [facility] HospitalActivated Partial Thromboplast Time 2019-05-03 15:53:00* Test Item Value Reference Range Interpretation Comments Activated Partial Thromboplast Time (test code = 60250-7) 27.0 23.8-35.5 [facility] HospitalActivated Partial Thromboplast Time 2019-05-03 15:53:00* Test Item Value Reference Range Interpretation Comments Activated Partial Thromboplast Time (test code = 63044-2) 27.0 23.8-35.5 [facility] HospitalProthrombin Sxtk9717-92-77 15:52:00* Test Item Value Reference Range Interpretation Comments Prothrombin Time (test code = 5902-2) 12.4 11.9-14.5 [facility] HospitalProthromb Time International Ratio 2019-05-03 15:52:00* Test Item Value Reference Range Interpretation Comments Prothromb Time International Ratio (test code = 6301-6) 0.88 Oral Anticoagulant Therapy INR Values:1. Low Intensity Therapy 1.5 - 2.02 . Moderate Intensity Therapy 2.0 - 3.03. High Intensity Therapy(1) 2.5 - 3. 54. High Intensity Therapy(2) 3.0 - 4.05. Panic Value INR > 5.0 [facility] HospitalProthrombin Xxtn1046-58-17 15:52:00* Test Item Value Reference Range Interpretation Comments Prothrombin Time (test code = 5902-2) 12.4 11.9-14.5 [facility] HospitalProthromb Time International Ratio 2019-05-03 15:52:00* Test Item Value Reference Range Interpretation Comments Prothromb Time International Ratio (test code = 6301-6) 0.88 Oral Anticoagulant Therapy INR Values:1. Low Intensity Therapy 1.5 - 2.02 . Moderate Intensity Therapy 2.0 - 3.03. High Intensity Therapy(1) 2.5 - 3. 54. High Intensity Therapy(2) 3.0 - 4.05. Panic Value INR > 5.0 [facility] HospitalWhite Blood Mydld9022-38-46 15:44:00* Test Item Value Reference Range Interpretation Comments White Blood Count (test code = 6690-2) 7.88 4.8-10.8 [facility] HospitalRed Blood Cuged0716-66-06 15:44:00* Test Item Value Reference Range Interpretation Comments Red Blood Count (test code = 789-8) 4.78 4.3-5.7 [facility] HospitalHemoglobin2019-11-18 15:44:00* Test Item Value Reference Range Interpretation Comments Hemoglobin (test code = 74516-0) 14.1 14.0-18.0 [facility] HospitalHematocrit2019-11-18 15:44:00* Test Item Value Reference Range Interpretation Comments Hematocrit (test code = 4544-3) 41.4 38.2-49.6 [facility] HospitalMean Corpuscular Zidums3204-93-29 15:44:00* Test Item Value Reference Range Interpretation Comments Mean Corpuscular Volume (test code = 787-2) 86.6 81-99 [facility] HospitalMean Corpuscular Bcxsxvazjl0704-26-36 15:44:00* Test Item Value Reference Range Interpretation Comments Mean Corpuscular Hemoglobin (test code = 785-6) 29.5 28-32 [facility] HospitalMean Corpuscular Hemoglobin Concent 2019-05-03 15:44:00* Test Item Value Reference Range Interpretation Comments Mean Corpuscular Hemoglobin Concent (test code = 786-4) 34.1 31-35 [facility] HospitalRed Cell Distribution Tucie8299-37-60 15:44:00* Test Item Value Reference Range Interpretation Comments Red Cell Distribution Width (test code = 68792-4) 13.2 11.7 -14.4 [facility] HospitalPlatelet Zzbtn4715-60-51 15:44:00* Test Item Value Reference Range Interpretation Comments Platelet Count (test code = 777-3) 292 140-360 [facility] HospitalNeutrophils (%) (Auto)2019-05-03 15:44:00 * Test Item Value Reference Range Interpretation Comments Neutrophils (%) (Auto) (test code = 55633-5) 45.1 38.7-80.0 [facility] HospitalLymphocytes (%) (Auto)2019-05-03 15:44:00 * Test Item Value Reference Range Interpretation Comments Lymphocytes (%) (Auto) (test code = 736-9) 41.8 18.0-39.1 H [facility] HospitalMonocytes (%) (Auto)2019-05-03 15:44:00* Test Item Value Reference Range Interpretation Comments Monocytes (%) (Auto) (test code = 5905-5) 7.0 4.4-11.3 [facility] HospitalEosinophils (%) (Auto)2019-05-03 15:44:00 * Test Item Value Reference Range Interpretation Comments Eosinophils (%) (Auto) (test code = 713-8) 5.1 0.0-6.0 [facility])2019-[facility]-03 15:44:00* Test Item Value Reference Range Interpretation Comments Basophils (%) (Auto) (test code = 706-2) 0.6 0.0-1.0 [facility] %2019-05-03 15:44:00* Test Item Value Reference Range Interpretation Comments IM GRANULOCYTES % (test code = IM GRANULOCYTES %) 0.4 0.0- 1.0 [facility] # ([facility])2019-05-03 15:44:00* Test Item Value Reference Range Interpretation Comments Neutrophils # (Auto) (test code = 751-8) 3.6 2.1-6.9 [facility] # ([facility])2019-05-03 15:44:00* Test Item Value Reference Range Interpretation Comments Lymphocytes # (Auto) (test code = 43406-9) 3.3 1.0-3.2 H [facility] # (Auto)2019-05-03 15:44:00* Test Item Value Reference Range Interpretation Comments Monocytes # (Auto) (test code = 742-7) 0.6 0.2-0.8 [facility] ([facility])2019-05-03 15:44:00* Test Item Value Reference Range Interpretation Comments Eosinophils # (Auto) (test code = 711-2) 0.4 0.0-0.4 [facility] ([facility])2019-05-03 15:44:00* Test Item Value Reference Range Interpretation Comments Basophils # (Auto) (test code = 704-7) 0.1 0.0-0.1 [facility]Absolute Immature Granulocyte (auto 2019-05-03 15:44:00* Test Item Value Reference Range Interpretation Comments Absolute Immature Granulocyte (auto (jeronimo t code = Absolute Immature Granulocyte (auto) 0.03 0-0.1 [facility] Opiates [id number] 10:14:00* Test Item Value Reference Range Interpretation Comments Urine Opiates Screen (test code = 81543-2) NEGATIVE NEGATIVE ALL TESTS PERFORMED MANUALLY ON Xerox TOX/SEE TESTH[facility] HospitalUrine Barbiturates [id number] 10:14:00* Test Item Value Reference Range Interpretation Comments Urine Barbiturates Screen (test code = 170945132) NEGATIVE NEGA TIVE [facility] Phencyclidine [id number] 10:14:00* Test Item Value Reference Range Interpretation Comments Urine Phencyclidine Screen (test code = 34660-2) NEGATIVE NEGAT SHIRA [facility] Amphetamines [id number] 10:14:00* Test Item Value Reference Range Interpretation Comments Urine Amphetamines Screen (test code = 77175-9) NEGATIVE NEGATI VE [facility] Methamphetamines [id number] 10:14:00* Test Item Value Reference Range Interpretation Comments Urine Methamphetamines Screen (test code = Urine Metha mphetamines Screen) NEGATIVE NEGATIVE [facility] Benzodiazepines [id number] 10:14:00* Test Item Value Reference Range Interpretation Comments Urine Benzodiazepines Screen (test code = 22460-5) NEGATIVE NEG ATIVE [facility] Cocaine [id number] 10:14:00* Test Item Value Reference Range Interpretation Comments Urine Cocaine Screen (test code = 3398-5) NEGATIVE NEGATIVE [facility] Cannabinoids [id number] 10:14:00* Test Item Value Reference Range Interpretation Comments Urine Cannabinoids Screen (test code = 00180-8) NEGATIVE NEGATI VE THESE RESULTS ARE FOR MEDICAL TREATMENT ONLYTHIS REPORT CONTAINS UNCONFIR MED SCREENING RESULTS*POSITIVE RESULTS WILL BE CONFIRMED BY REFERENCE LAB UPON R EQUEST CUT-OFFDRUG CLASS CONCENTRATION ng/mLAmphetamines 1000Methamphetamines 1000Cocaine 300Opiate 300Phencyc lidine 25Cannabinoid 50Barbiturates 300Benzodiazepine 300Methadone 300[facility] Methadone [id number] 10:14:00* Test Item Value Reference Range Interpretation Comments Urine Methadone Screen (test code = 07121-1) NEGATIVE NEGATIVE THESE RESULTS ARE FOR MEDICAL TREATMENT ONLYTHIS REPORT CONTAINS UNCONFIR MED SCREENING RESULTS*POSITIVE RESULTS WILL BE CONFIRMED BY REFERENCE LAB UPON R EQUEST CUT-OFFDRUG CLASS CONCENTRATION ng/mLAmphetamines 1000Methamphetamines 1000Cocaine Metabolite 300Opiate 300Phencyc lidine 25Cannabinoid 50Barbiturates 300Benzodiazepine 300Methadone 300[facility] O[facility]ates [id number] 10:14:00* Test Item Value Reference Range Interpretation Comments Urine Opiates Screen (test code = 14074-8) NEGATIVE NEGATIVE ALL TESTS PERFORMED MANUALLY ON Xerox TOX/SEE TESTHemph[facility] HospitalUrine Barbiturates [id number] 10:14:00* Test Item Value Reference Range Interpretation Comments Urine Barbiturates Screen (test code = 869745118) NEGATIVE NEGA TIVE [facility] Phencyclidine [id number] 10:14:00* Test Item Value Reference Range Interpretation Comments Urine Phencyclidine Screen (test code = 02104-8) NEGATIVE NEGAT SHIRA [facility] Amphetamines [id number] 10:14:00* Test Item Value Reference Range Interpretation Comments Urine Amphetamines Screen (test code = 47381-9) NEGATIVE NEGATI VE [facility] Methamphetamines [id number] 10:14:00* Test Item Value Reference Range Interpretation Comments Urine Methamphetamines Screen (test code = Urine Metha mphetamines Screen) NEGATIVE NEGATIVE [facility] Benzodiazepines [id number] 10:14:00* Test Item Value Reference Range Interpretation Comments Urine Benzodiazepines Screen (test code = 24709-9) NEGATIVE NEG ATIVE [facility] Cocaine [id number] 10:14:00* Test Item Value Reference Range Interpretation Comments Urine Cocaine Screen (test code = 3398-5) NEGATIVE NEGATIVE [facility] Cannabinoids [id number] 10:14:00* Test Item Value Reference Range Interpretation Comments Urine Cannabinoids Screen (test code = 54170-6) NEGATIVE NEGATI VE THESE RESULTS ARE FOR MEDICAL TREATMENT ONLYTHIS REPORT CONTAINS UNCONFIR MED SCREENING RESULTS*POSITIVE RESULTS WILL BE CONFIRMED BY REFERENCE LAB UPON R EQUEST CUT-OFFDRUG CLASS CONCENTRATION ng/mLAmphetamines 1000Methamphetamines 1000Cocaine 300Opiate 300Phencyc lidine 25Cannabinoid 50Barbiturates 300Benzodiazepine 300Methadone 300[facility] Methadone [id number] 10:14:00* Test Item Value Reference Range Interpretation Comments Urine Methadone Screen (test code = 15363-6) NEGATIVE NEGATIVE THESE RESULTS ARE FOR MEDICAL TREATMENT ONLYTHIS REPORT CONTAINS UNCONFIR MED SCREENING RESULTS*POSITIVE RESULTS WILL BE CONFIRMED BY REFERENCE LAB UPON R EQUEST CUT-OFFDRUG CLASS CONCENTRATION ng/mLAmphetamines 1000Methamphetamines 1000Cocaine Metabolite 300Opiate 300Phencyc lidine 25Cannabinoid 50Barbiturates 300Benzodiazepine 300Methadone 300[facility] O[facility]ates [id number] 10:14:00* Test Item Value Reference Range Interpretation Comments Urine Opiates Screen (test code = 84558-9) NEGATIVE NEGATIVE ALL TESTS PERFORMED MANUALLY ON Xerox TOX/SEE TESTHemph[facility] HospitalUrine Barbiturates [id number] 10:14:00* Test Item Value Reference Range Interpretation Comments Urine Barbiturates Screen (test code = 218952444) NEGATIVE NEGA TIVE [facility] Phencyclidine [id number] 10:14:00* Test Item Value Reference Range Interpretation Comments Urine Phencyclidine Screen (test code = 83804-0) NEGATIVE NEGAT SHIRA [facility] Amphetamines [id number] 10:14:00* Test Item Value Reference Range Interpretation Comments Urine Amphetamines Screen (test code = 08669-5) NEGATIVE NEGATI VE [facility] Methamphetamines [id number] 10:14:00* Test Item Value Reference Range Interpretation Comments Urine Methamphetamines Screen (test code = Urine Metha mphetamines Screen) NEGATIVE NEGATIVE [facility] Benzodiazep[facility] [id number] 10:14:00* Test Item Value Reference Range Interpretation Comments Urine Benzodiazepines Screen (test code = 40635-0) NEGATIVE NEG ATIVE [facility] Cocaine [id number] 10:14:00* Test Item Value Reference Range Interpretation Comments Urine Cocaine Screen (test code = 3398-5) NEGATIVE NEGATIVE [facility] Cannabinoids [id number] 10:14:00* Test Item Value Reference Range Interpretation Comments Urine Cannabinoids Screen (test code = 86628-4) NEGATIVE NEGATI VE THESE RESULTS ARE FOR MEDICAL TREATMENT ONLYTHIS REPORT CONTAINS UNCONFIR MED SCREENING RESULTS*POSITIVE RESULTS WILL BE CONFIRMED BY REFERENCE LAB UPON R EQUEST CUT-OFFDRUG CLASS CONCENTRATION ng/mLAmphetamines 1000Methamphetamines 1000Cocaine 300Opiate 300Phencyc lidine 25Cannabinoid 50Barbiturates 300Benzodiazepine 300Methadone 300[facility] Spqpgb2369-59-30 10:14:00* Test Item Value Reference Range Interpretation Comments Urine Methadone Screen (test code = 56152-2) NEGATIVE NEGATIVE THESE RESULTS ARE FOR MEDICAL TREATMENT ONLYTHIS REPORT CONTAINS UNCONFIR MED SCREENING RESULTS*POSITIVE RESULTS WILL BE CONFIRMED BY REFERENCE LAB UPON R EQUEST CUT-OFFDRUG CLASS CONCENTRATION ng/mLAmphetamines 1000Methamphetamines 1000Cocaine Metabolite 300Opiate 300Phencyc lidine 25Cannabinoid 50Barbiturates 300Benzodiazepine 300Methadone [address]
[2020-01-18] MEDS ORDERED: MORPHINE SULFATE INJ 4 MG/ML INJ 1ML IV STA (22:39)
[2020-01-18] MEDS: PIPER-TAZ 3.375 GM 50 ML IV SCH (23:15)
--- NOTE | 2020-01-18 23:30 | Diagnostic Imaging Report ---
EXAM: CTA of the Thoracic Aorta WITH Contrast. CTA of the abdominopelvic aorta INDICATION: Left chest pain ^PE PROTOCOL ^[id number] ^2229 ^Y COMPARISON: None. TECHNIQUE: Multi-detector CT technology was employed. CTA of the chest, abdomen, and pelvis was performed after the administration of IV contrast. For optimization of anatomic evaluation, multiplanar reconstruction, maximum intensity projections, and advanced 3-D off-line postprocessing were performed on a dedicated stand-alone workstation under the direct supervision of the interpreting physician. IV CONTRAST: 100 mL of Isovue 370 ORAL CONTRAST: None COMPLICATIONS: None RADIATION DOSE: Total DLP: 1149.35 mGy-cm Estimated effective dose: (DLP x 0.015 x size factor) mSv CTDIvol has been reviewed. It is below the limits set by the Radiation Protocol Committee (RPC). For optimization of anatomic evaluation, multiplanar reconstruction, maximum intensity projections, and advanced 3-D off-line postprocessing were performed on a dedicated stand-alone workstation under the direct supervision of the interpreting physician. FINDINGS: CHEST: There is an acute fracture through the anterior first rib. There there is a subadjacent 3.7 x 2.8 x 1.9 cm heterogenous collection with internal foci of gas. There appears to be compressed lung on the outer aspect of the lesion. The left internal mammary artery courses along the medial aspect of the collection. The collection abuts the anterior mediastinum. There are reactive inflammatory changes in the anterior mediastinum. There is loculated simple appearing fluid in the left major fissure and at the left base without pleural thickening or enhancement. There is consolidation in the left lower lobe with air bronchograms. There is scattered atelectasis in the right lung. The heart is not enlarged. The thoracic aorta is normal caliber. No evidence of intramural hematoma or dissection. No filling defects within the pulmonary arteries. LIMITED ABDOMEN: HEPATOBILIARY: No focal hepatic lesions. No biliary ductal dilation. GALLBLADDER: No radio-opaque stones or sludge. No wall thickening. SPLEEN: No splenomegaly. PANCREAS: No focal masses or ductal dilatation. ADRENALS: No adrenal nodules KIDNEYS/URETERS: Kidneys enhance symmetrically. No hydronephrosis. No cystic or solid mass lesions. No stones. GI TRACT: No abnormal distention, wall thickening, or evidence of bowel obstruction. Appendix is normal. PELVIC ORGANS/BLADDER: Unremarkable. LYMPH NODES: No lymphadenopathy. VESSELS: The abdominal aorta is normal caliber. PERITONEUM / RETROPERITONEUM: No free air or fluid. BONES: Unremarkable. SOFT TISSUES: Unremarkable. IMPRESSION: 1. 3.7 cm collection with internal foci of gas in the upper left hemithorax abutting a nondisplaced first rib fracture. The collection is favored to lay within the pleural space and representing a loculated empyema. Pulmonary abscess is considered less likely, but possible. The left internal mammary artery courses along the medial aspect of the lesion. Consider interventional radiology consultation. Follow-up CT with contrast in 6 weeks is recommended to exclude an underlying mass lesion. 2. Findings concerning for left lower lobe pneumonia, but atelectasis is also considered. Small simple appearing dependent left pleural effusion with fluid tracking in the left major fissure 3. Normal aorta. There is no acute aortic pathology. 4. No acute abdominopelvic process. 5. No filling defects within the pulmonary arteries. Critical results were discussed with Dr. Wilkes on 01/18/2020 and 11:15 PM Signed by: Aldo Avila MD on 01/18/2020 11:27 PM
[2020-01-18] MEDS ORDERED: ONDANSETRON HCL INJ 2MG/ML 2ML 2 MG/ML VIAL IV PRN (23:45)
[2020-01-18] MEDS ORDERED: SODIUM CHLORIDE 0.9% 50ML 50 ML ONE (23:52)
[2020-01-18] MEDS ORDERED: IOPAMIDOL 370 MG/ML 200 ML INFUS..BTL INJ ONE (23:52)
[2020-01-19] VITALS (10 sets, daily range): BP systolic 122–172; BP diastolic 63–91
--- OUTSIDE RECORDS SUMMARY | 2020-01-19 00:52 | XMS REPORT | Continuity of Care Document ---
Author Author [facility] t Organization [facility] Address [address] [place] [address] Phone Unavailable Care Team Providers Care Sr Technical Sales Consultant Name Role Phone JANNIE VERGARA DO PCP STEPHANIE WILKES Attphys Unavailable BUSTER LOPEZ Attphys Unavailable Vianney LIM Attphyaysha Unavailable Payers Payer Name Policy Type Policy Number Effective Date Expiration Date Aysha Zepeda [id number] [facility] Problems Condition Name Condition Details Condition Category Status Onset Date Resolution Date Last Treatment Date Treating Clinician Comments Source Bronchitis Bronchitis Problem Active C [facility] Allergies, Adverse Reactions, Alerts This patient has no known allergies or adverse reactions. Medications This patient has no known medications. Procedures Procedure Date / Time Performed Performing Clinician Sour e CT of abdomen and pelvis without contrast 2019-05-17 00:00:00 BUSTER PACHECO [facility] X-ray of chest, two views 2019-05-03 00:00:00 HUMA LIM [facility] EMERGENCY DEPT VISIT 2019-05-03 00:00:00 [facility] Encounters Start Date/Time End Date/Time Encounter Type Admission Type Attendi [facility] Care Department Encounter ID Source 2019-11-30 21:30:00 2019-11-30 21:30:00 Emergency E [facility] [id number] [facility] 2019-05-17 12:02:00 2019-05-17 14:09:00 Departed Emergency Room 1 BUSTER LOPEZ [facility] [id number] [facility] 2019-05-03 15:03:00 2019-05-03 16:50:00 Departed Emergency Room 1 HUMA LIM [facility] [id number] [facility] 2019-04-17 09:19:00 2019-04-17 10:46:00 Departed Emergency Room [facility] [id number] [facility] Results Test Description Test Time Test Comments Results Result Comments Source CTA ABD/PELVIS 2020-01-18 23:00:00 [facility] [address] [address] Patient Name: TEMO MEDRANO MR #: [id number] : 1975 Age/Sex: 44/M Req #: [id number] Adm Physician: Ordered by: STEPHANIE WILKES DO Report #: [id number] Location: ER Room/Bed: Procedure: [id number] CT/CTA ABD/PELVIS Exam Date: 01/18/20 Exam Time: 2229 REPORT STATUS: Signed EXAM: CTA of the Thoracic Aorta WITH Contrast. CTA of the abdominopelvic aorta INDICATION: Left chest pain PE PROTOCOL [id number] 2229 Y COMPARISON: None. TECHNIQUE: Multi- detector CT technology was employed. CTA of the chest, abdomen, and pelvis was performed after the administration of IV contrast. For optimization of anatomic evaluation, multiplanar reconstruction, maximum intensity projections, and advanced 3-D off-line postprocessing were performed on a dedicated stand-alone workstation under the direct supervision of the interpreting physician. IV CONTRAST: 100 mL of Isovue 370 ORAL CONTRAST: None COMPLICATIONS: None RADIATION DOSE: Total DLP: 1149.35 mGy-cm Estimated effective dose: (DLP x 0.015 x size factor) mSv CTDIvol has been reviewed. It is below the limits set by the Radiation Protocol Committee (RPC). For optimization of anatomic evaluation, multiplanar reconstruction, maximum intensity projections, and advanced 3-D off-line postprocessing were performed on a dedicated stand-alone workstation under the direct supervision of the interpreting physician. FINDINGS: CHEST: There is an acute fracture through the anterior first rib. There there is a subadjacent 3.7 x 2.8 x 1.9 cm heterogenous collection with internal foci of gas. There appears to be compressed lung on the outer aspect of the lesion. The left internal mammary artery courses along the medial aspect of the collection. The collection abuts the anterior mediastinum. There are reactive inflammatory changes in the anterior mediastinum. There is loculated simple appearing fluid in the left major fissure and at the left base without pleural thickening or enhancement. There is consolidation in the left lower lobe with air bronchograms. There is scattered atelectasis in the right lung. The heart is not enlarged. The thoracic aorta is normal caliber. No evidence of intramural hematoma or dissection. No filling defects within the pulmonary arteries. LIMITED ABDOMEN: HEPATOBILIARY: No focal hepatic lesions. No biliary ductal dilation. GALLBLADDER: No radio-opaque stones or sludge. No wall thickening. SPLEEN: No splenomegaly. PANCREAS: No focal masses or ductal dilatation. ADRENALS: No adrenal nodules KIDNEYS/URETERS: Kidneys enhance symmetrically. No hydronephrosis. No cystic or solid mass lesions. No stones. GI TRACT: No abnormal distention, wall thickening, or evidence of bowel obstruction. Appendix is normal. PELVIC ORGANS/BLADDER: Unremarkable. LYMPH NODES: No lymphadenopathy. VESSELS: The abdominal aorta is normal caliber. PERITONEUM / RETROPERITONEUM: No free air or fluid. BONES: Unremarkable. SOFT TISSUES: Unremarkable. IMPRESSION: 1. 3.7 cm collection with internal foci of gas in the upper left hemithorax abutting a nondisplaced first rib fracture. The collection is favored to lay within the pleural space and representing a loculated empyema. Pulmonary abscess is considered less likely, but possible. The left internal mammary artery courses along the medial aspect of the lesion. Consider interventional radiology consultation. Follow-up CT with contrast in 6 weeks is recommended to exclude an underlying mass lesion. 2. Findings concerning for left lower lobe pneumonia, but atelectasis is also considered. Small simple appearing dependent left pleural effusion with fluid tracking in the left major fissure 3. Normal aorta. There is no acute aortic pathology. 4. No acute abdominopelvic process. 5. No filling defects within the pulmonary arteries. Critical results were discussed with Dr. Wilkes on 01/18/2020 and 11:15 PM Signed by: Halle Noble MD on 01/18/2020 11:27 PM Dictated By: HALLE NOBLE MD 26 Transcribed By: BALJEET on 01/18/202326 COPY TO: STEPHANIE WILKES DO CTA CHEST 2020-01-18 23:00:[address] [address] Patient Name: TEMO MEDRANO MR #: [id number] : 1975 Age/Sex: 44/M Req #: [id number] Adm Physician: Ordered by: STEPHANIE WILKES DO Report #: [id number] Location: ER Room/Bed: Procedure: [id number] CT/CTA CHEST Exam Date: 01/18/20 Exam Time: 2229 REPORT STATUS: Signed EXAM: CTA of the Thoracic Aorta WITH Contrast. CTA of the abdominopelvic aorta INDICATION: Left chest pain PE PROTOCOL [id number] 2229 Y COMPARISON: None. TECHNIQUE: Multi-detector CT technology was employed. CTA of the chest, abdomen, and pelvis was performed after the administration of IV contrast. For optimization of anatomic evaluation, multiplanar reconstruction, maximum intensity projections, and advanced 3-D off-line postprocessing were performed on a dedicated stand-alone workstation under the direct supervision of the interpreting physician. IV CONTRAST: 100 mL of Isovue 370 ORAL CONTRAST: None COMPLICATIONS: None RADIATION DOSE: Total DLP: 1149.35 mGy-cm Estimated effective dose: (DLP x 0.015 x size factor) mSv CTDIvol has been reviewed. It is below the limits set by the Radiation Protocol Committee (RPC). For optimization of anatomic evaluation, multiplanar reconstruction, maximum intensity projections, and advanced 3-D off-line postprocessing were performed on a dedicated stand-alone workstation under the direct supervision of the interpreting physician. FINDINGS: CHEST: There is an acute fracture through the anterior first rib. There there is a subadjacent 3.7 x 2.8 x 1.9 cm heterogenous collection with internal foci of gas. There appears to be compressed lung on the outer aspect of the lesion. The left internal mammary artery courses along the medial aspect of the collection. The collection abuts the anterior mediastinum. There are reactive inflammatory changes in the anterior mediastinum. There is loculated simple appearing fluid in the left major fissure and at the left base without pleural thickening or enhancement. There is consolidation in the left lower lobe with air bronchograms. There is scattered atelectasis in the right lung. The heart is not enlarged. The thoracic aorta is normal caliber. No evidence of intramural hematoma or dissection. No filling defects within the pulmonary arteries. LIMITED ABDOMEN: HEPATOBILIARY: No focal hepatic lesions. No biliary ductal dilation. GALLBLADDER: No radio-opaque stones or sludge. No wall thickening. SPLEEN: No splenomegaly. PANCREAS: No focal masses or ductal dilatation. ADRENALS: No adrenal nodules KIDNEYS/URETERS: Kidneys enhance symmetrically. No hydronephrosis. No cystic or solid mass lesions. No stones. GI TRACT: No abnormal distention, wall thickening, or evidence of bowel obstruction. Appendix is normal. PELVIC ORGANS/BLADDER: Unremarkable. LYMPH NODES: No lymphadenopathy. VESSELS: The abdominal aorta is normal caliber. PERITONEUM / RETROPERITONEUM: No free air or fluid. BONES: Unremarkable. SOFT TISSUES: Unremarkable. IMPRESSION: 1. 3.7 cm collection with internal foci of gas in the upper left hemithorax abutting a nondisplaced first rib fracture. The collection is favored to lay within the pleural space and representing a loculated empyema. Pulmonary abscess is considered less likely, but possible. The left internal mammary artery courses along the medial aspect of the lesion. Consider interventional radiology consultation. Follow-up CT with contrast in 6 weeks is recommended to exclude an underlying mass lesion. 2. Findings concerning for left lower lobe pneumonia, but atele ctasis is also considered. Small simple appearing dependent left pleural effusion with fluid tracking in the left major fissure 3. Normal aorta. There is no acute aortic pathology. 4. No acute abdominopelvic process. 5. No filling defects within the pulmonary arteries. Critical results were discussed with Dr. Wilkes on 01/18/2020 and 11:15 PM Signed by: Halle Noble MD on 01/18/2020 11:27 PM Dictated By: HALLE NOBLE MD 26 Transcribed By: BALJEET on 01/18/202326 COPY TO: STEPHANIE WILKES DO CT ABDOMEN/PELVIS WO 2019-05-17 13:50:[address] [address] Patient Name: TEMO MEDRANO MR #: [id number] : 1975 Age/Sex: 44/M Req #: [id number] Adm Physician: Ordered by: JESSICA PAEZ, BUSTER PAEZ Report #: [id number] Location: ER Room/Bed: Procedure: [id number] CT/CT ABDOMEN/PELVIS WO Exam Date: 05/17/19 Exam [...] Level (test code = 2951-2) 136 136-145 [facility] Poxle2188-99-32 13:20:00* Test Item Value Reference Range Interpretation Comments Potassium Level (test code = 2823-3) 3.9 3.5-5.1 [facility] HospitalChloride Iynfa2408-26-67 13:20:00* Test Item Value Reference Range Interpretation Comments Chloride Level (test code = 2075-0) 104 98-107 [facility] HospitalCarbon Dioxide Wszpr4998-80-04 13:20:00* Test Item Value Reference Range Interpretation Comments Carbon Dioxide Level (test code = 8-9) 22 22-29 [facility] HospitalAnion Dfz5530-47-40 13:20:00* Test Item Value Reference Range Interpretation Comments Anion Gap (test code = 52012-0) 13.9 8-16 [facility] HospitalBlood Urea Gbhegpeb3146-14-75 13:20:00* Test Item Value Reference Range Interpretation Comments Blood Urea Nitrogen (test code = 3094-0) 13 7-26 [facility] HospitalCreatinine2019-12-02 13:20:00* Test Item Value Reference Range Interpretation Comments Creatinine (test code = 2160-0) 1.07 0.72-1.25 [facility] HospitalBUN/Creatinine Oytro0067-33-39 13:20:00* Test Item Value Reference Range Interpretation Comments BUN/Creatinine Ratio (test code = 3097-3) 12 6-25 [facility] HospitalEstimat Glomerular Filtration Rate 2019-05-17 13:20:00* Test Item Value Reference Range Interpretation Comments Estimat Glomerular Filtration Rate (test code = 724406424) > 60 >60 Ranges were taken from the National Kidney Disease Education Program and the [facility] literature.Reference ranges:60 or greater: Rxswvr98-40 ( for 3 consecutive months): Chronic kidney disease 15 or less: Kidney failureTexas Orthopedic HospitalGlucose Ougfh0063-73-20 13:20:00* Test Item Value Reference Range Interpretation Comments Glucose Level (test code = MWZ8693) 119 74-118 H [facility] HospitalCalcium Fckaf4487-14-31 13:20:00* Test Item Value Reference Range Interpretation Comments Calcium Level (test code = 74188-9) 9.4 8.4-10.2 [facility] HospitalTotal Vmesighyl4562-91-84 13:20:00* Test Item Value Reference Range Interpretation Comments Total Bilirubin (test code = 1975-2) 0.3 0.2-1.2 [facility] HospitalAspartate Amino Transf (AST/SGOT) 2019-05-17 13:20:00* Test Item Value Reference Range Interpretation Comments Aspartate Amino Transf (AST/SGOT) (test code = Aspartate Amino Transf (AST/SGOT)) 34 5-34 [facility] HospitalAlanine Aminotransferase (ALT/SGPT) 2019-05-17 13:20:00* Test Item Value Reference Range Interpretation Comments Alanine Aminotransferase (ALT/SGPT) (test code = 1742-6) 59 0-55 H [facility] HospitalTotal Ezgqjgo2191-81-63 13:20:00* Test Item Value Reference Range Interpretation Comments Total Protein (test code = 2885-2) 7.7 6.5-8.1 [facility] HospitalAlbumin2019-12-02 13:20:00* Test Item Value Reference Range Interpretation Comments Albumin (test code = 1751-7) 4.1 3.5-5.0 [facility] HospitalGlobulin2019-12-02 13:20:00* Test Item Value Reference Range Interpretation Comments Globulin (test code = 46272-2) 3.6 2.3-3.5 H [facility] HospitalAlbumin/Globulin Zwmpy6333-87-92 13:20:00 * Test Item Value Reference Range Interpretation Comments Albumin/Globulin Ratio (test code = 1759-0) 1.1 0.8-2.0 [facility] HospitalAlkaline Ncblnpfkxnf1029-20-09 13:20:00* Test Item Value Reference Range Interpretation Comments Alkaline Phosphatase (test code = 6768-6) 78 40-150 [facility] HospitalLipase2019-12-02 13:20:00* Test Item Value Reference Range Interpretation Comments Lipase (test code = 3040-3) 74 8-78 [facility] HospitalWhite Blood Pvrnu4730-33-06 13:10:00* Test Item Value Reference Range Interpretation Comments White Blood Count (test code = 6690-2) 7.67 4.8-10.8 [facility] HospitalRed Blood Fvltp9131-97-99 13:10:00* Test Item Value Reference Range Interpretation Comments Red Blood Count (test code = 789-8) 4.90 4.3-5.7 [facility] HospitalHemoglobin2019-12-02 13:10:00* Test Item Value Reference Range Interpretation Comments Hemoglobin (test code = 54124-7) 14.6 14.0-18.0 [facility] HospitalHematocrit2019-12-02 13:10:00* Test Item Value Reference Range Interpretation Comments Hematocrit (test code = 4544-3) 42.6 38.2-49.6 [facility] HospitalMean Corpuscular Supfow9391-39-62 13:10:00* Test Item Value Reference Range Interpretation Comments Mean Corpuscular Volume (test code = 787-2) 86.9 81-99 [facility] HospitalMean Corpuscular Cvwxfmnizq2962-93-66 13:10:00* Test Item Value Reference Range Interpretation Comments Mean Corpuscular Hemoglobin (test code = 785-6) 29.8 28-32 [facility] HospitalMean Corpuscular Hemoglobin Concent 2019-05-17 13:10:00* Test Item Value Reference Range Interpretation Comments Mean Corpuscular Hemoglobin Concent (test code = 786-4) 34.3 31-35 [facility] HospitalRed Cell Distribution Hjaqu6352-82-61 13:10:00* Test Item Value Reference Range Interpretation Comments Red Cell Distribution Width (test code = 88329-6) 13.4 11.7 -14.4 [facility] HospitalPlatelet Rlgev0298-61-72 13:10:00* Test Item Value Reference Range Interpretation Comments Platelet Count (test code = 777-3) 263 140-360 [facility] HospitalNeutrophils (%) (Auto)2019-05-17 13:10:00 * Test Item Value Reference Range Interpretation Comments Neutrophils (%) (Auto) (test code = 47064-0) 52.3 38.7-80.0 [facility] HospitalLymphocytes (%) (Auto)2019-05-17 13:10:00 * Test Item Value Reference Range Interpretation Comments Lymphocytes (%) (Auto) (test code = 736-9) 30.8 18.0-39.1 [facility] HospitalMonocytes (%) (Auto)2019-05-17 13:10:00* Test Item Value Reference Range Interpretation Comments Monocytes (%) (Auto) (test code = 5905-5) 8.6 4.4-11.3 [facility] HospitalEosinophils (%) (Auto)2019-05-17 13:10:00 * Test Item Value Reference Range Interpretation Comments Eosinophils (%) (Auto) (test code = 713-8) 7.4 0.0-6.0 H [facility] HospitalBasophils (%) (Auto)2019-05-17 13:10:00* Test Item Value Reference Range Interpretation Comments Basophils (%) (Auto) (test code = 706-2) 0.5 0.0-1.0 [facility] HospitalIM GRANULOCYTES %2019-05-17 13:10:00* Test Item Value Reference Range Interpretation Comments IM GRANULOCYTES % (test code = IM GRANULOCYTES %) 0.4 0.0- 1.0 [facility] HospitalNeutrophils # (Auto)2019-05-17 13:10:00* Test Item Value Reference Range Interpretation Comments Neutrophils # (Auto) (test code = 751-8) 4.0 2.1-6.9 [facility] HospitalLymphocytes # (Auto)2019-05-17 13:10:00* Test Item Value Reference Range Interpretation Comments Lymphocytes # (Auto) (test code = 13755-5) 2.4 1.0-3.2 [facility] HospitalMonocytes # (Auto)2019-05-17 13:10:00* Test Item Value Reference Range Interpretation Comments Monocytes # (Auto) (test code = 742-7) 0.7 0.2-0.8 [facility] HospitalEosinophils # (Auto)2019-05-17 13:10:00* Test Item Value Reference Range Interpretation Comments Eosinophils # (Auto) (test code = 711-2) 0.6 0.0-0.4 H [facility] HospitalBasophils # (Auto)2019-05-17 13:10:00* Test Item Value Reference Range Interpretation Comments Basophils # (Auto) (test code = 704-7) 0.0 0.0-0.1 [facility] HospitalAbsolute Immature Granulocyte (auto 2019-05-17 13:10:00* Test Item Value Reference Range Interpretation Comments Absolute Immature Granulocyte (auto (jeronimo t code = Absolute Immature Granulocyte (auto) 0.03 0-0.1 [facility] HospitalUrine MCN7722-02-88 12:57:00* Test Item Value Reference Range Interpretation Comments Urine WBC (test code = 5821-4) 0-5 0-5 [facility] HospitalUrine XXM8037-90-31 12:57:00* Test Item Value Reference Range Interpretation Comments Urine RBC (test code = 84374-1) 0-5 0-5 [facility] HospitalUrine Lofhtrap1195-51-15 12:57:00* Test Item Value Reference Range Interpretation Comments Urine Bacteria (test code = 91888-4) FEW NONE [facility] HospitalUrine Epithelial Omrrg8017-08-42 12:57:00 * Test Item Value Reference Range Interpretation Comments Urine Epithelial Cells (test code = 43694-6) FEW NONE [facility] HospitalUrine Kkyml7420-88-74 12:57:00* Test Item Value Reference Range Interpretation Comments Urine Mucus (test code = 8247-9) RARE RARE [facility] HospitalUrine Hbngr0790-10-84 12:51:00* Test Item Value Reference Range Interpretation Comments Urine Color (test code = 5778-6) YELLOW YELLOW [facility] HospitalUrine Tzwtbsh4105-87-84 12:51:00* Test Item Value Reference Range Interpretation Comments Urine Clarity (test code = 04348-4) CLEAR CLEAR [facility] HospitalUrine Specific Hozpshj4684-46-71 12:51:00 * Test Item Value Reference Range Interpretation Comments Urine Specific [place] (test code = 5811-5) 1.015 1.010-1.02 5 [facility] HospitalUrine mJ8987-74-63 12:51:00* Test Item Value Reference Range Interpretation Comments Urine pH (test code = 85016-6) 7 5-7 [facility] HospitalUrine Leukocyte Tneaqtbt1563-47-86 12:51:00* Test Item Value Reference Range Interpretation Comments Urine Leukocyte Esterase (test code = 94139-1) NEGATIVE NEGATIV E [facility] HospitalUrine Nrdbpjx9558-47-80 12:51:00* Test Item Value Reference Range Interpretation Comments Urine Nitrite (test code = 75380-5) NEGATIVE NEGATIVE [facility] HospitalUrine Vvrtnja1142-68-85 12:51:00* Test Item Value Reference Range Interpretation Comments Urine Protein (test code = 58259-8) NEGATIVE NEGATIVE [facility] HospitalUrine Glucose (UA)2019-05-17 12:51:00* Test Item Value Reference Range Interpretation Comments Urine Glucose (UA) (test code = 57039-3) NEGATIVE NEGATIVE [facility] HospitalUrine Bavkzdy4197-93-08 12:51:00* Test Item Value Reference Range Interpretation Comments Urine Ketones (test code = 57881-5) NEGATIVE NEGATIVE [facility] Yckpcerloytn4359-76-76 12:51:00* Test Item Value Reference Range Interpretation Comments Urine Urobilinogen (test code = 74912-5) 0.2 0.2-1 [facility] Reikugbnl8081-35-43 12:51:00* Test Item Value Reference Range Interpretation Comments Urine Bilirubin (test code = 1977-8) NEGATIVE NEGATIVE [facility] Wiinf7894-21-43 12:51:00* Test Item Value Reference Range Interpretation Comments Urine Blood (test code = 61748-0) NEGATIVE NEGATIVE [facility] HospitalB-Type Natriuretic Yiosbmr2508-00-80 16:10:00* Test Item Value Reference Range Interpretation Comments B-Type Natriuretic Peptide (test code = 90410-0) < 10.0 0-100 [facility] HospitalB-Type Natriuretic Gmwlhnf0980-06-65 16:10:00* Test Item Value Reference Range Interpretation Comments B-Type Natriuretic Peptide (test code = 40301-0) < 10.0 0-100 [facility] HospitalCreatine Kinase NG3717-95-45 16:08:00* Test Item Value Reference Range Interpretation Comments Creatine Kinase MB (test code = 92331-3) 0.70 0-5.0 [facility] HospitalTroponin T3572-39-50 16:08:00* Test Item Value Reference Range Interpretation Comments Troponin I (test code = ZLO0950) < 0.001 0-0.300 [facility] HospitalCreatine Kinase AQ4385-19-54 16:08:00* Test Item Value Reference Range Interpretation Comments Creatine Kinase MB (test code = 72485-5) 0.70 0-5.0 [facility] Z6190-00-99 16:08:00* Test Item Value Reference Range Interpretation Comments Troponin I (test code = AVB2303) < 0.001 0-0.300 [facility] 2 IFRNJ9658-18-27 16:05:00 [facility] [address] [address] Patient Name: TEMO MEDRANO MR #: [id number] : 1975 Age/Sex: 44/M Req #: [id number] Adm Physician: Ordered by: HUMA LIM MD Report #: [id number] Location: ER Room/Bed: Procedure: [id number] DX/CHEST 2 VIEWS Exam Date: 05/03/19 Exam [...] Micaela Sorensen MD on 05/03/2019 4:06 PM Dic tated By: MICAELA SORENSEN MD 160 6 Transcribed By: BALJEET on 05/03/19 1606 COPY TO: HUMA LIM Sodium Omzsp2548-08-57 16:03:00* Test Item Value Reference Range Interpretation Comments Sodium Level (test code = 2951-2) 138 136-145 [facility] HospitalPotassium Unono1474-20-15 16:03:00* Test Item Value Reference Range Interpretation Comments Potassium Level (test code = 2823-3) 3.7 3.5-5.1 [facility] HospitalChloride Gjaoo9301-95-58 16:03:00* Test Item Value Reference Range Interpretation Comments Chloride Level (test code = 2075-0) 101 98-107 [facility] HospitalCarbon Dioxide Yamrc2809-70-59 16:03:00* Test Item Value Reference Range Interpretation Comments Carbon Dioxide Level (test code = 2028-9) 26 22-29 [facility] HospitalAnion Rtc3340-77-81 16:03:00* Test Item Value Reference Range Interpretation Comments Anion Gap (test code = 88406-0) 14.7 8-16 [facility] HospitalBlood Urea Ucotrjwo7667-11-45 16:03:00* Test Item Value Reference Range Interpretation Comments Blood Urea Nitrogen (test code = 3094-0) 12 7-26 [facility] HospitalCreatinine2019-11-18 16:03:00* Test Item Value Reference Range Interpretation Comments Creatinine (test code = 2160-0) 1.01 0.72-1.25 [facility] HospitalBUN/Creatinine Apfqy6405-44-57 16:03:00* Test Item Value Reference Range Interpretation Comments BUN/Creatinine Ratio (test code = 3097-3) 12 6- [facility] HospitalEstimat Glomerular Filtration Rate 2019-05-03 16:03:00* Test Item Value Reference Range Interpretation Comments Estimat Glomerular Filtration Rate (test code = 574102208) > 60 >60 Ranges were taken from the National Kidney Disease Education Program and the [facility] literature.Reference ranges:60 or greater: Bcpfmn01-83 ( for 3 consecutive months): Chronic kidney disease 15 or less: Kidney failureCHI St. [facility] CenterGlucose Vhpig1359-13-37 16:03:00* Test Item Value Reference Range Interpretation Comments Glucose Level (test code = DMX3646) 87 74-118 [facility]Calcium Lbrzv5030-84-83 16:03:00* Test Item Value Reference Range Interpretation Comments Calcium Level (test code = 28493-9) 9.6 8.4-10.2 [facility] HospitalTotal Mrxyuxlej4969-50-32 16:03:00* Test Item Value Reference Range Interpretation Comments Total Bilirubin (test code = 1975-2) 0.5 0.2-1.2 [facility] HospitalAspartate Amino Transf (AST/SGOT) 2019-05-03 16:03:00* Test Item Value Reference Range Interpretation Comments Aspartate Amino Transf (AST/SGOT) (test code = Aspartate Amino Transf (AST/SGOT)) 31 5-34 [facility] HospitalAlanine Aminotransferase (ALT/SGPT) 2019-05-03 16:03:00* Test Item Value Reference Range Interpretation Comments Alanine Aminotransferase (ALT/SGPT) (test code = 1742-6) 39 0-55 [facility] HospitalTotal Myiszty5168-33-96 16:03:00* Test Item Value Reference Range Interpretation Comments Total Protein (test code = 2885-2) 7.8 6.5-8.1 [facility] HospitalAlbumin2019-11-18 16:03:00* Test Item Value Reference Range Interpretation Comments Albumin (test code = 1751-7) 4.3 3.5-5.0 [facility] HospitalGlobulin2019-11-18 16:03:00* Test Item Value Reference Range Interpretation Comments Globulin (test code = 56919-4) 3.5 2.3-3.5 [facility] HospitalAlbumin/Globulin Wmlje3716-42-80 16:03:00 * Test Item Value Reference Range Interpretation Comments Albumin/Globulin Ratio (test code = 1759-0) 1.2 0.8-2.0 [facility] HospitalAlkaline Lhhqqxwargi9441-52-82 16:03:00* Test Item Value Reference Range Interpretation Comments Alkaline Phosphatase (test code = 6768-6) 68 40-150 [facility] HospitalCreatine Lzrvjs7496-09-88 16:03:00* Test Item Value Reference Range Interpretation Comments Creatine Kinase (test code = 2157-6) 158 30-200 [facility] HospitalCreatine Bknhch7172-51-01 16:03:00* Test Item Value Reference Range Interpretation Comments Creatine Kinase (test code = 2157-6) 158 30-200 [facility] HospitalActivated Partial Thromboplast Time 2019-05-03 15:53:00* Test Item Value Reference Range Interpretation Comments Activated Partial Thromboplast Time (test code = 27103-9) 27.0 23.8-35.5 [facility] HospitalActivated Partial Thromboplast Time 2019-05-03 15:53:00* Test Item Value Reference Range Interpretation Comments Activated Partial Thromboplast Time (test code = 03302-8) 27.0 23.8-35.5 [facility] HospitalProthrombin Ytuu5121-22-69 15:52:00* Test Item Value Reference Range Interpretation Comments Prothrombin Time (test code = 5902-2) 12.4 11.9-14.5 [facility] HospitalProthromb Time International Ratio 2019-05-03 15:52:00* Test Item Value Reference Range Interpretation Comments Prothromb Time International Ratio (test code = 6301-6) 0.88 Oral Anticoagulant Therapy INR Values:1. Low Intensity Therapy 1.5 - 2.02 . Moderate Intensity Therapy 2.0 - 3.03. High Intensity Therapy(1) 2.5 - 3. 54. High Intensity Therapy(2) 3.0 - 4.05. Panic Value INR > 5.0 [facility] HospitalProthrombin Febq7498-89-44 15:52:00* Test Item Value Reference Range Interpretation Comments Prothrombin Time (test code = 5902-2) 12.4 11.9-14.5 [facility] HospitalProthromb Time International Ratio 2019-05-03 15:52:00* Test Item Value Reference Range Interpretation Comments Prothromb Time International Ratio (test code = 6301-6) 0.88 Oral Anticoagulant Therapy INR Values:1. Low Intensity Therapy 1.5 - 2.02 . Moderate Intensity Therapy 2.0 - 3.03. High Intensity Therapy(1) 2.5 - 3. 54. High Intensity Therapy(2) 3.0 - 4.05. Panic Value INR > 5.0 [facility] HospitalWhite Blood Hknnl2801-44-94 15:44:00* Test Item Value Reference Range Interpretation Comments White Blood Count (test code = 6690-2) 7.88 4.8-10.8 [facility] HospitalRed Blood Pmtur4906-85-41 15:44:00* Test Item Value Reference Range Interpretation Comments Red Blood Count (test code = 789-8) 4.78 4.3-5.7 [facility] HospitalHemoglobin2019-11-18 15:44:00* Test Item Value Reference Range Interpretation Comments Hemoglobin (test code = 53774-4) 14.1 14.0-18.0 [facility] HospitalHematocrit2019-11-18 15:44:00* Test Item Value Reference Range Interpretation Comments Hematocrit (test code = 4544-3) 41.4 38.2-49.6 [facility] HospitalMean Corpuscular Bvdgdh1625-92-86 15:44:00* Test Item Value Reference Range Interpretation Comments Mean Corpuscular Volume (test code = 787-2) 86.6 81-99 [facility] HospitalMean Corpuscular Liaypmbwaz5919-06-36 15:44:00* Test Item Value Reference Range Interpretation Comments Mean Corpuscular Hemoglobin (test code = 785-6) 29.5 28-32 [facility] HospitalMean Corpuscular Hemoglobin Concent 2019-05-03 15:44:00* Test Item Value Reference Range Interpretation Comments Mean Corpuscular Hemoglobin Concent (test code = 786-4) 34.1 31-35 [facility] HospitalRed Cell Distribution Xnasf2794-11-28 15:44:00* Test Item Value Reference Range Interpretation Comments Red Cell Distribution Width (test code = 54186-3) 13.2 11.7 -14.4 [facility] HospitalPlatelet Ermnu7629-73-29 15:44:00* Test Item Value Reference Range Interpretation Comments Platelet Count (test code = 777-3) 292 140-360 [facility] HospitalNeutrophils (%) (Auto)2019-05-03 15:44:00 * Test Item Value Reference Range Interpretation Comments Neutrophils (%) (Auto) (test code = 64086-9) 45.1 38.7-80.0 [facility] HospitalLymphocytes (%) (Auto)2019-05-03 15:44:00 * Test Item Value Reference Range Interpretation Comments Lymphocytes (%) (Auto) (test code = 736-9) 41.8 18.0-39.1 H [facility] HospitalMonocytes (%) (Auto)2019-05-03 15:44:00* Test Item Value Reference Range Interpretation Comments Monocytes (%) (Auto) (test code = 5905-5) 7.0 4.4-11.3 [facility] HospitalEosinophils (%) (Auto)2019-05-03 15:44:00 * Test Item Value Reference Range Interpretation Comments Eosinophils (%) (Auto) (test code = 713-8) 5.1 0.0-6.0 [facility] HospitalBasophils (%) (Auto)2019-05-03 15:44:00* Test Item Value Reference Range Interpretation Comments Basophils (%) (Auto) (test code = 706-2) 0.6 0.0-1.0 [facility] HospitalIM GRANULOCYTES %2019-05-03 15:44:00* Test Item Value Reference Range Interpretation Comments IM GRANULOCYTES % (test code = IM GRANULOCYTES %) 0.4 0.0- 1.0 [facility] HospitalNeutrophils # (Auto)2019-05-03 15:44:00* Test Item Value Reference Range Interpretation Comments Neutrophils # (Auto) (test code = 751-8) 3.6 2.1-6.9 [facility] HospitalLymphocytes # (Auto)2019-05-03 15:44:00* Test Item Value Reference Range Interpretation Comments Lymphocytes # (Auto) (test code = 98540-6) 3.3 1.0-3.2 H [facility] HospitalMonocytes # (Auto)2019-05-03 15:44:00* Test Item Value Reference Range Interpretation Comments Monocytes # (Auto) (test code = 742-7) 0.6 0.2-0.8 [facility] HospitalEosinophils # (Auto)2019-05-03 15:44:00* Test Item Value Reference Range Interpretation Comments Eosinophils # (Auto) (test code = 711-2) 0.4 0.0-0.4 [facility] HospitalBasophils # (Auto)2019-05-03 15:44:00* Test Item Value Reference Range Interpretation Comments Basophils # (Auto) (test code = 704-7) 0.1 0.0-0.1 [facility] HospitalAbsolute Immature Granulocyte (auto 2019-05-03 15:44:00* Test Item Value Reference Range Interpretation Comments Absolute Immature Granulocyte (auto (jeronimo t code = Absolute Immature Granulocyte (auto) 0.03 0-0.1 [facility] HospitalUrine Opiates Lccsas2894-93-23 10:14:00* Test Item Value Reference Range Interpretation Comments Urine Opiates Screen (test code = 10380-5) NEGATIVE NEGATIVE ALL TESTS PERFORMED MANUALLY ON [employer] TOX/SEE TESTTexas Orthopedic HospitalUrine Barbiturates Ebeuej2571-45-49 10:14:00* Test Item Value Reference Range Interpretation Comments Urine Barbiturates Screen (test code = 052547088) NEGATIVE NEGA TIVE [facility] HospitalUrine Phencyclidine Jzmqup8270-93-16 10:14:00* Test Item Value Reference Range Interpretation Comments Urine Phencyclidine Screen (test code = 20241-2) NEGATIVE NEGAT SHIRA [facility] HospitalUrine Amphetamines Tbsjxk2046-36-69 10:14:00* Test Item Value Reference Range Interpretation Comments Urine Amphetamines Screen (test code = 62206-2) NEGATIVE NEGATI VE [facility] HospitalUrine Methamphetamines Aigwmd9593-82-83 10:14:00* Test Item Value Reference Range Interpretation Comments Urine Methamphetamines Screen (test code = Urine Metha mphetamines Screen) NEGATIVE NEGATIVE [facility] HospitalUrine Benzodiazepines Godohm1611-85-95 10:14:00* Test Item Value Reference Range Interpretation Comments Urine Benzodiazepines Screen (test code = 61984-4) NEGATIVE NEG ATIVE [facility] HospitalUrine Cocaine Dbgghr0036-50-26 10:14:00* Test Item Value Reference Range Interpretation Comments Urine Cocaine Screen (test code = 3398-5) NEGATIVE NEGATIVE [facility] HospitalUrine Cannabinoids Omujzn0739-85-27 10:14:00* Test Item Value Reference Range Interpretation Comments Urine Cannabinoids Screen (test code = 03536-2) NEGATIVE NEGATI VE THESE RESULTS ARE FOR MEDICAL TREATMENT ONLYTHIS REPORT CONTAINS UNCONFIR MED SCREENING RESULTS*POSITIVE RESULTS WILL BE CONFIRMED BY REFERENCE LAB UPON R EQUEST CUT-OFFDRUG CLASS CONCENTRATION ng/mLAmphetamines 1000Methamphetamines 1000Cocaine 300Opiate 300Phencyc lidine 25Cannabinoid 50Barbiturates 300Benzodiazepine 300Methadone 300[facility] HospitalUrine Methadone Hvxypb3110-37-85 10:14:00* Test Item Value Reference Range Interpretation Comments Urine Methadone Screen (test code = 62181-5) NEGATIVE NEGATIVE THESE RESULTS ARE FOR MEDICAL TREATMENT ONLYTHIS REPORT CONTAINS UNCONFIR MED SCREENING RESULTS*POSITIVE RESULTS WILL BE CONFIRMED BY REFERENCE LAB UPON R EQUEST CUT-OFFDRUG CLASS CONCENTRATION ng/mLAmphetamines 1000Methamphetamines 1000Cocaine Metabolite 300Opiate 300Phencyc lidine 25Cannabinoid 50Barbiturates 300Benzodiazepine 300Methadone 300[facility] HospitalUrine Opiates Pidueu7865-83-73 10:14:00* Test Item Value Reference Range Interpretation Comments Urine Opiates Screen (test code = 58101-3) NEGATIVE NEGATIVE ALL TESTS PERFORMED MANUALLY ON [employer] TOX/SEE TESTTexas Orthopedic HospitalUrine Barbiturates Ptmgki5242-35-69 10:14:00* Test Item Value Reference Range Interpretation Comments Urine Barbiturates Screen (test code = 155119920) NEGATIVE NEGA TIVE [facility] HospitalUrine Phencyclidine Kfveqo8411-14-83 10:14:00* Test Item Value Reference Range Interpretation Comments Urine Phencyclidine Screen (test code = 30246-8) NEGATIVE NEGAT SHIRA [facility] HospitalUrine Amphetamines Pzyvrq3186-27-98 10:14:00* Test Item Value Reference Range Interpretation Comments Urine Amphetamines Screen (test code = 75027-9) NEGATIVE NEGATI VE [facility] HospitalUrine Methamphetamines Vawiny9889-52-81 10:14:00* Test Item Value Reference Range Interpretation Comments Urine Methamphetamines Screen (test code = Urine Metha mphetamines Screen) NEGATIVE NEGATIVE [facility] HospitalUrine Benzodiazepines Arrdek9737-52-39 10:14:00* Test Item Value Reference Range Interpretation Comments Urine Benzodiazepines Screen (test code = 70088-0) NEGATIVE NEG ATIVE [facility] HospitalUrine Cocaine Ybtqlb4808-03-79 10:14:00* Test Item Value Reference Range Interpretation Comments Urine Cocaine Screen (test code = 3398-5) NEGATIVE NEGATIVE [facility] HospitalUrine Cannabinoids [id number] 10:14:00* Test Item Value Reference Range Interpretation Comments Urine Cannabinoids Screen (test code = 73187-1) NEGATIVE NEGATI VE THESE RESULTS ARE FOR MEDICAL TREATMENT ONLYTHIS REPORT CONTAINS UNCONFIR MED SCREENING RESULTS*POSITIVE RESULTS WILL BE CONFIRMED BY REFERENCE LAB UPON R EQUEST CUT-OFFDRUG CLASS CONCENTRATION ng/mLAmphetamines 1000Methamphetamines 1000Cocaine 300Opiate 300Phencyc lidine 25Cannabinoid 50Barbiturates 300Benzodiazepine 300Methadone 300[facility] HospitalUrine Methadone Gwgfcn9766-06-51 10:14:00* Test Item Value Reference Range Interpretation Comments Urine Methadone Screen (test code = 50003-1) NEGATIVE NEGATIVE THESE RESULTS ARE FOR MEDICAL TREATMENT ONLYTHIS REPORT CONTAINS UNCONFIR MED SCREENING RESULTS*POSITIVE RESULTS WILL BE CONFIRMED BY REFERENCE LAB UPON R EQUEST CUT-OFFDRUG CLASS CONCENTRATION ng/mLAmphetamines 1000Methamphetamines 1000Cocaine Metabolite 300Opiate 300Phencyc lidine 25Cannabinoid 50Barbiturates 300Benzodiazepine 300Methadone 300[facility] HospitalUrine Opiates Dexeri5174-69-93 10:14:00* Test Item Value Reference Range Interpretation Comments Urine Opiates Screen (test code = 61815-2) NEGATIVE NEGATIVE ALL TESTS PERFORMED MANUALLY ON [employer] TOX/SEE TESTTexas Orthopedic HospitalUrine Barbiturates Toalum1030-11-04 10:14:00* Test Item Value Reference Range Interpretation Comments Urine Barbiturates Screen (test code = 092453830) NEGATIVE NEGA TIVE [facility] HospitalUrine Phencyclidine Qxvizr5385-15-21 10:14:00* Test Item Value Reference Range Interpretation Comments Urine Phencyclidine Screen (test code = 10280-6) NEGATIVE NEGAT SHIRA [facility] HospitalUrine Amphetamines Rqjdvu1691-06-50 10:14:00* Test Item Value Reference Range Interpretation Comments Urine Amphetamines Screen (test code = 30409-9) NEGATIVE NEGATI VE [facility] Methamphetamines Jcpdon1456-72-39 10:14:00* Test Item Value Reference Range Interpretation Comments Urine Methamphetamines Screen (test code = Urine Metha mphetamines Screen) NEGATIVE NEGATIVE [facility] HospitalUrine Benzodiazepines Aruynm2690-76-92 10:14:00* Test Item Value Reference Range Interpretation Comments Urine Benzodiazepines Screen (test code = 59453-0) NEGATIVE NEG ATIVE [facility] HospitalUrine Cocaine [id number] 10:14:00* Test Item Value Reference Range Interpretation Comments Urine Cocaine Screen (test code = 3398-5) NEGATIVE NEGATIVE [facility] HospitalUrine Cannabinoids Zfcvqj7012-56-26 10:14:00* Test Item Value Reference Range Interpretation Comments Urine Cannabinoids Screen (test code = 47640-6) NEGATIVE NEGATI VE THESE RESULTS ARE FOR MEDICAL TREATMENT ONLYTHIS REPORT CONTAINS UNCONFIR MED SCREENING RESULTS*POSITIVE RESULTS WILL BE CONFIRMED BY REFERENCE LAB UPON R EQUEST CUT-OFFDRUG CLASS CONCENTRATION ng/mLAmphetamines 1000Methamphetamines 1000Cocaine 300Opiate 300Phencyc lidine 25Cannabinoid 50Barbiturates 300Benzodiazepine 300Methadone 300[facility] HospitalUrine Methadone Idkrpe9230-88-48 10:14:00* Test Item Value Reference Range Interpretation Comments Urine Methadone Screen (test code = 98602-6) NEGATIVE NEGATIVE THESE RESULTS ARE FOR MEDICAL TREATMENT ONLYTHIS REPORT CONTAINS UNCONFIR MED SCREENING RESULTS*POSITIVE RESULTS WILL BE CONFIRMED BY REFERENCE LAB UPON R EQUEST CUT-OFFDRUG CLASS CONCENTRATION ng/mLAmphetamines 1000Methamphetamines 1000Cocaine Metabolite 300Opiate 300Phencyc lidine 25Cannabinoid 50Barbiturates 300Benzodiazepine 300Methadone 300[facility]
[2020-01-19] MEDS ORDERED: ONDANSETRON HCL 4 MG ORAL DISINTEGRATING TAB ONE (01:36)
[2020-01-19] MEDS: MORPHINE SULFATE INJ 4 MG/ML INJ 1ML IV PRN ×5 (02:05→20:15)
--- NOTE | 2020-01-19 02:15 | NUR ---
RECEIVED PATIENT FORM ER IN STABLE CONDITION, NO SIGNS OF RESPIRATORY DISTRESS NOTED. IV FLUIDS ARE RUNNING AT ORDERED RATE AND PATIENT VOICED PAIN AT A LEVEL OF 8, WAS MEDICATED ORDERED. BED IS IN LOWEST POSITION, BOTH SIDE RAILS ARE UP, CALL LIGHT IS WITHIN EASY REACH, WILL CONTINUE TO MONITOR.
[2020-01-19 02:23] LABS: CLARITY,URINE CLEAR (CLEAR); COLOR,URINE YELLOW (YELLOW)
[2020-01-19 02:24] LABS: AMPHETAMINES SCREEN,URINE NEGATIVE (NEGATIVE); BENZODIAZEPINES SCREEN,URINE NEGATIVE (NEGATIVE); KETONES,URINE NEGATIVE (NEGATIVE); LEUKOCYTE ESTERASE ,URINE NEGATIVE (NEGATIVE); NITRITE,URINE NEGATIVE (NEGATIVE); PHENCYCLIDINE SCREEN,URINE NEGATIVE (NEGATIVE); PROTEIN,URINE DIPSTICK NEGATIVE (NEGATIVE)
[2020-01-19 02:25] LABS: BILIRUBIN,URINE SMALL (NEGATIVE); URINE UROBILINOGEN 1 mg/dL (0.2 - 1)
[2020-01-19 02:37] LABS: BACTERIA,URINE MANY /HPF; EPITHELIAL CELLS,URINE FEW /LPF; TRANSITIONAL EPI CELLS,URINE FEW; WBC,URINE (MAN) 0-5 /HPF (0-5)
[2020-01-19] MEDS: PIPER-TAZ 3.375 GM 50 ML IV SCH ×3 (06:01→17:19)
[2020-01-19 06:35] LABS: BASOPHILS % 0.2 % (0.0-1.0); EOSINOPHILS # (AUTO) 0.1 (0.0-0.4); EOSINOPHILS % 0.7 % (0.0-6.0); HEMATOCRIT 35.7 % (38.2-49.6); LYMPHOCYTES # (AUTO) 1.7 (1.0-3.2); LYMPHOCYTES % 9.6 % (18.0-39.1); MEAN CORPUSCULAR HEMOGLOBIN 28.8 pg (28-32); MEAN CORPUSCULAR HGB CONC 33.6 g/dL (31-35); MEAN CORPUSCULAR VOLUME 85.8 fL (81-99); MONOCYTES # (AUTO) 1.6 (0.2-0.8); MONOCYTES % 9.1 % (4.4-11.3); NEUTROPHILS # (AUTO) 14.4 (2.1-6.9); NEUTROPHILS % 79.6 % (38.7-80.0); PLATELET COUNT 332 x10e3/uL (140-360); RED BLOOD COUNT 4.16 x10e6/uL (4.3-5.7); RED CELL DISTRIBUTION WIDTH 15.3 % (11.7-14.4)
[2020-01-19 06:59] LABS: ALANINE AMINOTRANSFERASE 343 IU/L (0-55); ALBUMIN 2.3 g/dL (3.5-5.0); ALBUMIN/GLOBULIN RATIO 0.5 (0.8-2.0); ALKALINE PHOSPHATASE 233 IU/L (40-150); ANION GAP 11.1 mmol/L (8-16); BLOOD UREA NITROGEN 13 mg/dL (7-26); BUN/CREATININE RATIO 13 (6-25); CALCIUM 8.7 mg/dL (8.4-10.2); CARBON DIOXIDE 27 mmol/L (22-29); CHLORIDE 100 mmol/L (98-107); CREATININE, SERUM 1.02 mg/dL (0.72-1.25); EST GLOMERULAR FILTRATION RATE > 60 ML/MIN (60-); GLUCOSE 109 mg/dL (74-118); POTASSIUM 4.1 mmol/L (3.5-5.1); SODIUM 134 mmol/L (136-145)
[2020-01-19 07:27] LABS: CREATINE KINASE 37 IU/L (30-200)
[2020-01-19] MEDS: SODIUM CHLORIDE 0.9% 1000ML 1,000 ML IV SCH ×3 (10:28→20:36)
--- NOTE | 2020-01-19 10:38 | NUR ---
GAVE PACKET OF INFORMATION WITH COMMUNITY RESOURCES FOR ASSISTANCE WITH LOW TO NO INCOME TO PATIENT. RESOURCES THAT PATIENT MAY BE ABLE TO FOLLOW UP UPON DISCHARGE. PT EDUCATED ON EACH RESOURCE AND UNDERSTANDING HOW TO FOLLOW UP TO SEE IF QUALIFIED FOR EACH RESOURCE.
--- NOTE | 2020-01-19 11:56 | NUR ---
paperback machine operator visited with the pt. Traffic Line Painter validated his feeling of loneness and provided counseling to focus on recovery , paperback machine operator provided hope building and prayer. Pt expressed sadaf and more peace and appreciated paperback machine operator support. chaplain Kee
[2020-01-19 11:58] LABS: INR 0.97; PROTHROMBIN TIME 13.4 seconds (11.9-14.5)
--- NOTE | 2020-01-19 15:42 | NUR ---
Patient left the floor via wheelchair to have thoracentesis
--- NOTE | 2020-01-19 16:30 | Diagnostic Imaging Report ---
Bilateral chest ultrasound History: Empyema Technique/findings: Trace left posterior pleural effusion is too small to safely perform thoracentesis. No right pleural effusion. IMPRESSION: Trace left posterior pleural effusion, too small to safely perform thoracentesis. Of note, the CT of the prior day demonstrated a collection deep to the anterior first rib concerning for abscess/empyema. This collection is not readily visible under ultrasound. Instead of ultrasound guided aspiration, aspiration will be performed under CT guidance. Signed by: Itz Sorensen MD on 01/19/2020 4:27 PM
[2020-01-19 17:19] LABS: BODY FLUID APPEARANCE TURBID; BODY FLUID COLOR STRAW; BODY FLUID TYPE ASPIRATE
[2020-01-19] MEDS: ACETAMINOPHEN 325 MG TAB PO PRN ×2 (17:20→23:50)
[2020-01-19 18:34] LABS: CREATINE KINASE MB 0.2 ng/mL (0-5.0)
[2020-01-19 19:06] LABS: RBC,BODY FLUID 446 cells/uL; WBC,BODY FLUID 3292 cells/uL
[2020-01-19 20:09] LABS: LYMPHOCYTES,BODY FLUID 28 %; MONO/MACROPHG,BODY FLUID 35 %; NEUTROPHILS,BODY FLUID 37 %
--- NOTE | 2020-01-19 20:15 | NUR ---
PATIENT IN STABLE CONDITION, NO SIGNS OF RESPIRATORY DISTRESS NOTED. IV FLUIDS ARE RUNNING AT ORDERED RATE AND PATIENT VOICED PAIN AT A LEVEL OF 8, WAS MEDICATED ORDERED. BED IS IN LOWEST POSITION, BOTH SIDE RAILS ARE UP, CALL LIGHT IS WITHIN EASY REACH, WILL CONTINUE TO MONITOR.
--- NOTE | 2020-01-19 23:15 | Consultation ---
DATE OF CONSULTATION: Pulmonary Critical Care Consultation CHIEF COMPLAINT: Anterior chest pain and fevers. HISTORY OF PRESENT ILLNESS: The patient is a 44-year-old man. He had COVID-19 about 2 months ago, required a very brief hospitalization at [facility]. He was sick for a total of 10 days. About 3 days ago, he developed some anterior chest pain on the right side. He believes it was related to doing pull-ups. He went to see his family doctor. He subsequently went to the ER. He did have a fever for the first time today. A CT scan showed fluid collection in the anterior mediastinum, posterior to the for 1st rib. He had a CT-guided drainage procedure today and small amount of pus was removed. He states he feels better. PAST SURGICAL HISTORY: Noncontributory. PAST MEDICAL HISTORY: No prior history of cardiopulmonary disease. ALLERGIES: THERE ARE NO KNOWN DRUG ALLERGIES. REVIEW OF SYSTEMS: Fevers today. No headache. No neck pain. There is some anterior chest pain. He has no dyspnea or cough. He has no abdominal pain. PHYSICAL EXAMINATION: VITAL SIGNS: Stable. HEENT: Shows no facial swelling or erythema. The oropharynx is normal. LYMPHATIC: Shows no submandibular, cervical, or supraclavicular adenopathy. CARDIAC: Reveals a regular rate and rhythm with normal S1 and S2. LUNGS: Auscultation of lungs reveals decreased breath sounds at the bases. There is no wheezing. ABDOMEN: Soft and nontender. There is no rebound or guarding. EXTREMITIES: Shows no leg edema or calf tenderness. LABORATORY DATA: White blood cell count is 18 and hemoglobin is 12. Platelet count is 332. The BUN to creatinine ratio is normal. Other electrolytes are within normal limits. The total bilirubin is 2. The AST is 144 and the ALT is 343. Albumin is 2.3. RADIOGRAPHIC DATA: Chest CT shows a 3.7 cm collection in the upper mediastinum on the left side. There is also some fluid collection in the left lower lobe. There is some infiltrate in the left lower lobe. IMPRESSION: 1. Loculated abscess in the pleural space. 2. Left lower lobe pneumonia. 3. Elevated liver enzymes. PLAN: 1. Continue current antibiotics. 2. Repeat CBC in the morning. 3. Continue to monitor clinically. Hopefully, the patient can be treated with antibiotics alone. Hopefully, the patient will not require any further drainage procedure. MD CHERYL Avina/FRANKIE /[id number]
[2020-01-20] VITALS (7 sets, daily range): BP systolic 132–144; BP diastolic 67–87
[2020-01-20] MEDS: MORPHINE SULFATE INJ 4 MG/ML INJ 1ML IV PRN ×2 (00:15→04:15)
[2020-01-20] MEDS ORDERED: LISINOPRIL 10 MG TAB PO ONE (00:15)
[2020-01-20] MEDS: PIPER-TAZ 3.375 GM 50 ML IV SCH ×4 (00:18→17:50)
[2020-01-20] MEDS: SODIUM CHLORIDE 0.9% 1000ML 1,000 ML IV SCH ×2 (05:35→15:38)
[2020-01-20] MEDS: ACETAMINOPHEN 325 MG TAB PO PRN ×3 (07:45→20:00)
[2020-01-20] MEDS ORDERED: ETODOLAC400 MG PO (08:26)
[2020-01-20] MEDS ORDERED: CYCLOBENZAPRINE5 MG PO (08:26)
[2020-01-20] MEDS: LISINOPRIL 10 MG TAB PO SCH ×2 (09:07→17:50)
[2020-01-20] MEDS: KETOROLAC TROMETHAMINE 30 MG/ML VIAL IV PRN ×2 (12:50→20:00)
[2020-01-20] MEDS: VANCOMYCIN 1GM/NS 250 ML 250 ML IV SCH (15:38)
--- NOTE | 2020-01-20 16:14 | Consultation ---
DATE OF CONSULTATION: HISTORY OF PRESENT ILLNESS: Mr. Painting is a very pleasant 44-year-old gentleman who does do body weights and heavy exercise, comes in with back pain. He went to see a chiropractor. The patient's pain got worse. He comes here with back pain and a CT scan was done, showed there is a small abscess, fluid collection in anterior mediastinum. I was asked to see him. He is currently alert, oriented, has no complaints. Small amount of pus was drained. PAST MEDICAL HISTORY: Denies. PAST SURGICAL HISTORY: Denies. ALLERGIES: NKA. SOCIAL HISTORY: There is no smoking, drug abuse, or alcohol abuse. FAMILY HISTORY: Otherwise unremarkable. REVIEW OF SYSTEMS: At present time, HEENT: Negative. PULMONARY: Negative. CARDIAC: Negative. PHYSICAL EXAMINATION: GENERAL: He is currently alert, oriented. VITAL SIGNS: Stable, currently afebrile. HEENT: He is not icteric. NECK: Supple. CHEST: Clear. HEART: S1, S2. ABDOMEN: Soft. Bowel sounds present. SKIN: No rash. LABORATORY DATA: The wound is growing Staph aureus. IMPRESSION AND PLAN: Abscess on the chest drains Staphylococcus aureus. Blood cultures are negative. I think it could be because he does heavy exercise, strained, and had hematoma, which got infected. We will keep him on vancomycin. We will follow him clinically. Concerned that he may need to be on IV vancomycin for few weeks. Review with Radiology. We will follow. MD BRADY Lazcano/FRANKIE /[id number]
--- NOTE | 2020-01-20 17:24 | Progress Note ---
DATE: SUBJECTIVE: Mr. Painting is feeling better. PHYSICAL EXAMINATION: GENERAL: He is currently alert, oriented, does not seem to be in acute distress. VITAL SIGNS: Stable, currently afebrile. HEENT: He is not icteric. NECK: Supple. CHEST: Clear bilateral. HEART: S1, S2. No murmurs. ABDOMEN: Soft. IMPRESSION: Cellulitis of the leg seems to be better. If he continued to improve, we can switch him to oral doxycycline. Discharge home tomorrow. Continue as ordered. Discussed with the patient plan. MD BRADY Lazcano/FRANKIE /[id number]
--- NOTE | 2020-01-20 20:00 | NUR ---
INITIAL ASSESSMENT COMPLETE, CALL LIGHT IN REACH, PT C/O PAIN TO LEFT SHOULDER AT TIMES AND WHEN TAKING DEEP BREATH, TELE ON PT, DRESSING TO PUNCTURE WOUND INTACT, NO DRAINAGE NOTED, VS WNL,
[2020-01-21] VITALS: BP 127/76
[2020-01-21] MEDS: ACETAMINOPHEN 325 MG TAB PO PRN ×3 (01:22→14:45)
[2020-01-21] MEDS: KETOROLAC TROMETHAMINE 30 MG/ML VIAL IV PRN ×3 (02:20→14:50)
[2020-01-21] MEDS: VANCOMYCIN 1GM/NS 250 ML 250 ML IV SCH ×2 (04:00→16:00)
[2020-01-21 04:04] VITALS: BP 133/84
[2020-01-21] MEDS: SODIUM CHLORIDE 0.9% 1000ML 1,000 ML IV SCH ×3 (04:12→15:45)
[2020-01-21] MEDS: PIPER-TAZ 3.375 GM 50 ML IV SCH ×3 (06:00→12:00)
--- NOTE | 2020-01-21 06:18 | NUR ---
PT IN BED, HAS SLEPT OFF AND ON ALL NIGHT, UP TO BATHROOM ON OWN, VS WNL, CALL LIGHT IN REACH, CONTINUE TO MONITOR PT.
--- NOTE | 2020-01-21 07:10 | NUR ---
RCD PT AT BED PT IS ALERT AND ORIENTED IN TO 2-3 ,IV PATENT BY SALINE FLUSH , HE C/O BACK PAIN TYLENOL AND ICE BAG GIVEN BED LOW AND LOCKED CALL LIGHT IN REACH
--- NOTE | 2020-01-21 07:30 | NUR ---
PAGED DR NIÑO AND LEFT THE MESSAGE TO NOTIFY THE CRITICAL REPORT
[2020-01-21 07:44] VITALS: BP 125/67
[2020-01-21 08:45] VITALS: BP 125/67
--- NOTE | 2020-01-21 08:45 | NUR ---
PAGED DR NIÑO TO NOTIFY THE MRSA IN THORACIC FLUID AND LEFT THE MESSAGE
[2020-01-21] MEDS: LISINOPRIL 10 MG TAB PO SCH ×2 (09:00→16:50)
[2020-01-21 11:26] VITALS: BP 126/77
--- NOTE | 2020-01-21 14:46 | NUR ---
AC TO DR NIÑO PT CAN GO HOME SO PAGED DR Jude SIMON TO NOTIFY THAT AND GET THE DISCHARGE ORDER
[2020-01-21] MEDS ORDERED: ZYVOX600 MG PO (15:58)
--- NOTE | 2020-01-21 16:55 | NUR ---
PATIENT WENT HOME IN SAFE CONDITION WITH HIS GIRL FRIEND
--- NOTE | 2020-01-27 15:31 | Diagnostic Imaging Report ---
PROCEDURE: Fluid collection aspiration Procedural Personnel Attending physician(s): Itz Sorensen MD Fellow physician(s): None Resident physician(s): None Advanced practice provider(s): None Pre-procedure diagnosis: Left chest abscess Post-procedure diagnosis: Same Indication: Pain associated with fluid collection Additional clinical history: Fluid collection deep/inferior to left first sternocostal joint. Complications: No immediate complications. IMPRESSION: Percutaneous aspiration of left anterior chest fluid collection, yielding 10 mL of brownish fluid. No drainage catheter was left in place. Plan: Fluid sent for cultures and further analysis PROCEDURE SUMMARY: - Aspiration of left chest fluid collection under CT guidance - Additional procedure(s): None PROCEDURE DETAILS: Pre-procedure Consent: Informed consent for the procedure including risks, benefits and alternatives was obtained and time-out was performed prior to the procedure. Preparation: The site was prepared and draped using maximal sterile barrier technique including cutaneous antisepsis. Anesthesia/sedation Level of anesthesia/sedation: No sedation Anesthesia/sedation administered by: Independent trained observer under attending supervision with continuous monitoring of the patient?s level of consciousness and physiologic status Total intra-service sedation time (minutes): NA Fluid collection aspiration The patient was positioned supine. Initial imaging was performed with noncontrast CT. Local anesthesia was administered. The fluid collection was accessed using an access needle. Position within the fluid collection was confirmed, and fluid aspiration was performed. All instruments were then removed. - Initial imaging findings: Left subpleural fluid collection inferior/deep to left 1st sternocostal joint - Aspiration needle/catheter: 20g [place] - Post-aspiration imaging findings: Partial decompression of collection Contrast Contrast agent: None Contrast volume (mL): [address] dose length product (mGy-cm): 1131 Additional Details Additional description of procedure: None Equipment details: None Specimens removed: Aspirated fluid was sent for analysis. Estimated blood loss (mL): Less than 10 Standardized report: [id number] Attestation Signer name: Itz Sorensen MD I attest that I was present for the entire procedure. I reviewed the stored images and agree with the report as written. Signed by: Itz Sorensen MD on 01/27/2020 3:27 PM
== END 2020-01-21 16:55 | disposition home or self-care (01) | DRG 177 ==
LOC: ER 20:55 → ERHOLD 23:39 → MED/SURG2 01-19 01:35
PROC: 0W9B30Z Drainage of Left Pleural Cavity with Drainage Device, Percutaneous Approach (ICD-10-PCS; principal; 2020-01-18)
DX: J86.9 Pyothorax without fistula (principal); J18.1 Lobar pneumonia, unspecified organism; L03.119 Cellulitis of unspecified part of limb; Z86.19 Personal history of other infectious and parasitic diseases; B95.62 Methicillin resistant Staphylococcus aureus infection as the cause of diseases classified elsewhere; I10 Essential (primary) hypertension
CPT/HCPCS: 10005; 10160; 36415; 71275; 74174; 74470; 76604; 77012; 80053; 80307; 81001; 82550; 82553; 83605; 83690; 83880; 84484; 85025; 85610; 85651; 86039; 86140; 86431; 87040; 87070; 87071; 87116; 87186; 87205; 87206; 89051; 93005; 93306; 96361; 99285; J1885; J2270; J2405; J2543; J3370; J7030; Q0162; Q9967; U0002

== ENCOUNTER → 2020-04-12 | Outpatient (CLI) | payer SELFPAY ==
[~2020-04-12] MED LIST: CYCLOBENZAPRINE5 MG PO; ETODOLAC400 MG PO; ZYVOX600 MG PO
--- NOTE | 2020-04-12 14:34 | Diagnostic Imaging Report ---
CT of the chest, without contrast. History: Anomaly of clavicle. Comparison: CTA chest from 01/18/2020. Technique: Multidetector CT scanning of the chest was performed from the level of the apices to the upper abdomen without contrast. Coronal and sagittal multiplanar reformations were obtained. RADIATION DOSE: Total DLP: 576.32 mGy*cm Dose modulation, iterative reconstruction, and/or weight based adjustment of the mA/kV was utilized to reduce the radiation dose to as low as reasonably achievable. FINDINGS: The previously identified fluid collection underlying the anterior first rib has resolved. The thyroid and remaining visualized structures of the base the neck demonstrate no significant abnormalities. The thoracic aorta is normal course and caliber. The heart is not enlarged. No abnormal pericardial fluid is present. There is no abnormal axillary, mediastinal, or hilar lymph node enlargement. The trachea and proximal airways are patent. There has been resolution of consolidation within the left lower lobe with bandlike opacities remaining within the lingula and left lower lobe suggestive of subsegmental atelectasis/scarring. There is no evidence for consolidation, pneumothorax, mass, suspicious nodule, or pleural effusion. Limited views of the upper abdomen demonstrate no significant abnormalities. There is continued separation of the costochondral joint of the first rib and manubrium on the left. The osseous structures otherwise demonstrate no evidence for acute fracture or destructive process. The extra thoracic soft tissues are unremarkable. IMPRESSION: 1. Interval resolution of the previously identified fluid collection underlying the anterior left first rib. 2. Interval resolution of left lower lobe consolidation with residual areas of subsegmental atelectasis/scarring noted within the lingula and left lower lobe. Signed by: Dr. Grant Fay MD on 04/12/2020 2:31 PM
== END ==
LOC: CT 11:52
PROVIDERS: ATTEND Surgery
DX: M89.9 Disorder of bone, unspecified (principal)
CPT/HCPCS: 71250

== ENCOUNTER 2020-07-08 08:26 | Emergency (ER) | payer SELFPAY ==
[~2020-07-08] VITALS: Ht 170.2 cm; Wt 75.3 kg
[2020-07-08] MEDS ORDERED: KETOROLAC TROMETHAMINE 30 MG/ML VIAL IM STA (08:55)
[2020-07-08 10:30] VITALS: BP 136/89
[2020-07-08] MEDS ORDERED: FIORICET 50-301 EACH PO (10:32)
== END 2020-07-08 10:39 | disposition home or self-care (01) ==
LOC: ER 08:29
DX: R51.9 Headache, unspecified (principal); I10 Essential (primary) hypertension; E78.5 Hyperlipidemia, unspecified; K21.9 Gastro-esophageal reflux disease without esophagitis
CPT/HCPCS: 70450; 99283; J1885

== ENCOUNTER → 2022-10-08 | Day surgery (SDC) | payer BC ==
[~2022-10-08] MED LIST changes: +ATORVASTATIN CA20 MG PO; +FENTANYL CITRATE/PF 100MCG/2 ML INJ ONE; +FIORICET 50-301 EACH PO; +LACTATED RINGER'S 1,000 ML ONE; +LIDOCAINE HCL 2% LOCAL INJ 5 ML SDV VIAL INJ ONE; +LOSARTAN POTAS100 MG PO; +METOCLOPRAMIDE HCL 10 MG/2ML VIAL ONE; +OMEPRAZOLE40 MG PO; +POVIDONE IODINE 0.05% 0.05 % ML PO ONE; +PROPOFOL IV EMULSION 50 ML IV ONE; +VITAMIN D31 ML; +[UNRECOGNIZED DRUG - OTHER]; +[UNRECOGNIZED DRUG - OTHER] PO
[2022-10-08 12:55] VITALS: BP 120/66
== END | disposition home or self-care (01) ==
LOC: OR 10:48
PROVIDERS: ATTEND Internal Medicine Gastroenterology
DX: K29.50 Unspecified chronic gastritis without bleeding (principal); K31.7 Polyp of stomach and duodenum; K21.9 Gastro-esophageal reflux disease without esophagitis; K44.9 Diaphragmatic hernia without obstruction or gangrene; Z71.3 Dietary counseling and surveillance; I10 Essential (primary) hypertension; E78.00 Pure hypercholesterolemia, unspecified; Z01.810 Encounter for preprocedural cardiovascular examination; Z79.899 Other long term (current) drug therapy; Z68.29 Body mass index [BMI] 29.0-29.9, adult
CPT/HCPCS: 43239; 43251; 93005; C9113; J2001; J2704; J2765; J3010; J7121

== ENCOUNTER → 2024-02-12 | Day surgery (SDC) | payer OTHER ==
[~2024-02-12] MED LIST changes: +DEXMEDETOMIDINE HCL 200 MCG/2 ML VIAL ONE; -METOCLOPRAMIDE HCL 10 MG/2ML VIAL ONE; +MULTI-VITAMIN1 EACH PO; -POVIDONE IODINE 0.05% 0.05 % ML PO ONE; +PROPOFOL IV EMULSION 10 MG/ML 20 ML VIAL ONE; +PROPOFOL IV EMULSION 10 MG/ML 50 ML VIAL IV ONE; -PROPOFOL IV EMULSION 50 ML IV ONE; +PROTONIX20 MG PO
[2024-02-12 13:57] VITALS: TEMP 98.2
[2024-02-12 14:25] VITALS: BP 119/58; PULSE 55; RESP 16; O2SAT 98
[2024-02-12 15:09] LABS: WBC,FECAL (FECAL LACTOFERRIN) POSITIVE (NEGATIVE)
== END | disposition home or self-care (01) ==
LOC: OR 11:18
PROVIDERS: ATTEND Internal Medicine Gastroenterology
DX: K52.9 Noninfective gastroenteritis and colitis, unspecified (principal); K62.89 Other specified diseases of anus and rectum; K64.8 Other hemorrhoids; K29.70 Gastritis, unspecified, without bleeding; K21.9 Gastro-esophageal reflux disease without esophagitis; Z71.3 Dietary counseling and surveillance; I10 Essential (primary) hypertension; E78.5 Hyperlipidemia, unspecified; Z01.810 Encounter for preprocedural cardiovascular examination; Z79.899 Other long term (current) drug therapy; Z68.27 Body mass index [BMI] 27.0-27.9, adult
CPT/HCPCS: 45380; 83630; 83993; 86140; 87045; 87177; 87324; 87328; 87449; 93005; J2001; J2704 ×2; J3010; J7121

== ENCOUNTER → 2024-06-08 | Day surgery (SDC) | payer OTHER ==
[2024-06-04 15:01] LABS: BASOPHILS % 0.5 % (0.0-1.0); EOSINOPHILS # (AUTO) 0.3 (0.0-0.4); EOSINOPHILS % 3.2 % (0.0-6.0); HEMATOCRIT 50.1 % (38.2-49.6); HEMOGLOBIN 15.6 g/dL (14.0-18.0); LYMPHOCYTES # (AUTO) 2.4 (1.0-3.2); LYMPHOCYTES % 30.4 % (18.0-39.1); MEAN CORPUSCULAR HEMOGLOBIN 27.4 pg (28-32); MEAN CORPUSCULAR HGB CONC 31.1 g/dL (31-35); MONOCYTES # (AUTO) 0.8 (0.2-0.8); MONOCYTES % 10.4 % (4.4-11.3); NEUTROPHILS # (AUTO) 4.3 (2.1-6.9); NEUTROPHILS % 55.2 % (38.7-80.0); PLATELET COUNT 332 x10e3/uL (140-360); RED BLOOD COUNT 5.69 x10e6/uL (4.3-5.7); RED CELL DISTRIBUTION WIDTH 13.5 % (11.7-14.4); WHITE BLOOD COUNT 7.72 x10e3/uL (4.8-10.8)
[~2024-06-08] MED LIST changes: +BUPIVACAINE/EPI 0.5% 30ML SDV-MPF INJ ONE; +DEXAMETHASONE SOD PHOS INJ 4 MG/ML SDV ONE; -DEXMEDETOMIDINE HCL 200 MCG/2 ML VIAL ONE; +EPHEDRINE SULFATE INJ 50 MG/ML VIAL ONE; -LACTATED RINGER'S 1,000 ML ONE; +MIDAZOLAM HCL 2 MG/2 ML VIAL ONE; +ONDANSETRON HCL INJ 2MG/ML 2ML 2 MG/ML VIAL ONE; -PROPOFOL IV EMULSION 10 MG/ML 50 ML VIAL IV ONE
[2024-06-08] MEDS: CEFAZOLIN SODIUM 2 GM ONE (05:58)
[2024-06-08] MEDS: LACTATED RINGER'S 1,000 ML ONE (05:58)
[2024-06-08 10:33] VITALS: BP 152/87; PULSE 78; RESP 18; O2SAT 99
== END | disposition home or self-care (01) ==
LOC: OR 05:21
PROVIDERS: ATTEND Orthopaedic Surgery
DX: M75.122 Complete rotator cuff tear or rupture of left shoulder, not specified as traumatic (principal); M75.42 Impingement syndrome of left shoulder; M65.912 Unspecified synovitis and tenosynovitis, left shoulder; S43.432A Superior glenoid labrum lesion of left shoulder, initial encounter; M75.52 Bursitis of left shoulder; M75.02 Adhesive capsulitis of left shoulder; X58.XXXA Exposure to other specified factors, initial encounter; I10 Essential (primary) hypertension; E78.5 Hyperlipidemia, unspecified; R00.1 Bradycardia, unspecified; K21.9 Gastro-esophageal reflux disease without esophagitis; Z01.812 Encounter for preprocedural laboratory examination; Z79.899 Other long term (current) drug therapy
CPT/HCPCS: 29807; 29826; 29827; 36415; 85025; 93005; C1713 ×2; J1100; J2003; J2250; J2405; J2704; J3010; J7121

== ENCOUNTER 2024-12-13 12:41 | Emergency (ER) | payer OTHER ==
[~2024-12-13] VITALS: Ht 170.2 cm; Wt 79.8 kg
[~2024-12-13 12:41] MED LIST changes: -BUPIVACAINE/EPI 0.5% 30ML SDV-MPF INJ ONE; -DEXAMETHASONE SOD PHOS INJ 4 MG/ML SDV ONE; -EPHEDRINE SULFATE INJ 50 MG/ML VIAL ONE; -FENTANYL CITRATE/PF 100MCG/2 ML INJ ONE; -LIDOCAINE HCL 2% LOCAL INJ 5 ML SDV VIAL INJ ONE; -MIDAZOLAM HCL 2 MG/2 ML VIAL ONE; -ONDANSETRON HCL INJ 2MG/ML 2ML 2 MG/ML VIAL ONE; -PROPOFOL IV EMULSION 10 MG/ML 20 ML VIAL ONE
[2024-12-13 12:45] VITALS: TEMP 98.5
[2024-12-13 13:00] LABS: BASOPHILS % 0.4 % (0.0-1.0); EOSINOPHILS # (AUTO) 0.4 (0.0-0.4); EOSINOPHILS % 4.8 % (0.0-6.0); HEMATOCRIT 46.8 % (38.2-49.6); HEMOGLOBIN 15.7 g/dL (14.0-18.0); LYMPHOCYTES # (AUTO) 2.5 (1.0-3.2); LYMPHOCYTES % 32.2 % (18.0-39.1); MEAN CORPUSCULAR HEMOGLOBIN 29.5 pg (28-32); MEAN CORPUSCULAR HGB CONC 33.5 g/dL (31-35); MONOCYTES # (AUTO) 0.7 (0.2-0.8); MONOCYTES % 8.9 % (4.4-11.3); NEUTROPHILS # (AUTO) 4.2 (2.1-6.9); NEUTROPHILS % 53.4 % (38.7-80.0); PLATELET COUNT 332 x10e3/uL (140-360); RED BLOOD COUNT 5.32 x10e6/uL (4.3-5.7); RED CELL DISTRIBUTION WIDTH 14.1 % (11.7-14.4)
[2024-12-13 13:22] LABS: ALANINE AMINOTRANSFERASE 38 IU/L (0-55); ALBUMIN 4.3 g/dL (3.5-5.0); ALBUMIN/GLOBULIN RATIO 1.3 (0.8-2.0); ALKALINE PHOSPHATASE 58 IU/L (40-150); ANION GAP 14.7 mmol/L (8-16); BILIRUBIN,TOTAL 0.5 mg/dL (0.2-1.2); BLOOD UREA NITROGEN 11 mg/dL (7-26); BUN/CREATININE RATIO 10 (6-25); CALCIUM 8.8 mg/dL (8.4-10.2); CARBON DIOXIDE 23 mmol/L (22-29); CHLORIDE 107 mmol/L (98-107); CREATININE, SERUM 1.14 mg/dL (0.72-1.25); EST GLOMERULAR FILTRATION RATE 79 ML/MIN (>=60); GLUCOSE 103 mg/dL (74-118); LIPASE 108 U/L (8-78); POTASSIUM 3.7 mmol/L (3.5-5.1); SODIUM 141 mmol/L (136-145); TOTAL PROTEIN 7.7 g/dL (6.5-8.1)
[2024-12-13 13:30] VITALS: PULSE 74; RESP 15; O2SAT 97
[2024-12-13 13:30] LABS: TROPONIN I < 0.001 ng/mL (0-0.300)
== END 2024-12-13 14:23 | disposition home or self-care (01) ==
LOC: ER 12:45
DX: K85.90 Acute pancreatitis without necrosis or infection, unspecified (principal); F41.0 Panic disorder [episodic paroxysmal anxiety]; I10 Essential (primary) hypertension; E78.5 Hyperlipidemia, unspecified; K21.9 Gastro-esophageal reflux disease without esophagitis
CPT/HCPCS: 36415; 71045; 80053; 83690; 84484; 85025; 93005; 99283